=== PATIENT | female | born 1995 | race Caucasian/White ===

== ENCOUNTER 2023-06-10 15:53 | Outpatient (OUT) | payer OTHER, SELFPAY ==
[2023-06-10 16:45] LABS: Free T4 0.98 ng/dL (0.76-1.46)
[2023-06-10 16:53] LABS: Thyroid Stimulating Hormone 0.235 uIU/mL (0.358-3.740)
== END 2023-06-10 15:54 | disposition home or self-care (01) ==
LOC: LAB 15:56
PROVIDERS: PCP Family Medicine; Visit Provider Family Medicine
DX: E89.0 Postprocedural hypothyroidism (principal)
CPT/HCPCS: 36415; 84439; 84443; 84481

== ENCOUNTER 2023-08-25 14:49 | Outpatient (OUT) | payer OTHER, SELFPAY ==
--- OUTSIDE RECORDS SUMMARY | 2023-08-25 14:54 | XMS_ITS | CCD ---
Author Name Unknown Address [address] [place] [address] Organization [facility] Care Team Providers Care Plane Captain Name Role Phone Mehdi Waitered A. Unavailable Unavailable Kabette Bill A. Unavailable Unavailable Bill Waite A. Unavailable Unavailable NONE, XXXX Unavailable Unavailable Drea Garcia Unavailable DR GEREMIAS HERRON Admitting Unavailable GOPAL, DR GEREMIAS Hodges Attending Unavailable GOPAL, DR GEREIMAS Hodges Primary Care Unavailable GOPAL, DR GEREMIAS Hodges Consulting Unavailable GOPAL, DR GEREMIAS Hodges Admitting Unavailable SHITALERECary, DR GEREMIAS Hodges Attending Unavailable GOPAL, DR GEREMIAS Hodges Primary Care Unavailable GOPAL, DR GEREMIAS Hodges Consulting Unavailable MD Geremias Herron Primary Care Provider [phone] MD Erica Santana Attending Provider MD Geremias Herron Primary Care Provider MD Matthias Zelaya Attending Provider MD Geremias Herron Attending Provider [phone] Geremias Herron Primary Care Unavailable Matthias Zelaya Admitting Unavailable Matthias Zelaya Attending Unavailable Geremias Herron Primary Care Unavailable Geremias Herron Attending Unavailable Geremias Herron Admitting Unavailable Geremias Herron Primary Care Unavailable Erica Santana Admitting Unavailable Erica Santana Attending Unavailable Laurie Merlos Unavailable GEREMIAS HERRON Attending Unavailable Medications Current Medications Medication Drug Class(es) Dates Sig (Normalized) Sig (Original) amoxicillin 875 mg / clavulanate 125 mg oral tablet (5 sources) Penicillin-class Antibacterial Start: 09-30-2021 take 1 tablet by mouth every twelve hours Amoxicillin-Pot Clavulanate 875-125 MG 1 tablet Orally every 12 hrs for 7 days Jun, Active Start: 08-30-2020 End: 02-16-2022 take 1 tablet by mouth twice daily Amoxicillin-Pot Clavulanate (Augmentin) 875-125 mg tablet Discontinued 1 TAB PO Twice daily August 30, 2020 1:00am February 16, 2022 9:08am fluticasone propionate 0.05 mg/actuat metered dose nasal spray (3 sources) Corticosteroid Start: 07-08-2023 take 1 spray(s) nasal route once daily Fluticasone Propionate 50 MCG/ACT 1 spray in each nostril Nasally Once a day for 14 Jun, Active Start: 09-30-2021 take 2 spray(s) nasa l route once daily Fluticasone Propionate 50 MCG/ACT 2 sprays Nasally Once a day for 14 day(s) Sep, Not-Taking levothyroxine sodium 0.2 mg oral tablet (4 sources) l-Thyroxine Start: 08-30-2020 take 200 ug by mouth once daily Levothyroxine Active 200 MCG PO Daily August 30, 2020 1:00am take 1 tablet by lyndsey th every twenty-four hours Levothyroxine Sodium 125 MCG 1 capsule Orally Once a day for 90 days Active ondansetron 4 mg disintegrating oral tablet (4 sources) Serotonin-3 Receptor Antagonist Start: 02-16-2022 Ondansetron Active 4 MG PO every 6 to 8 hours February 16, 2022 12:00am Start: 10-03-2019 take 1 tablet by lyndsey th every eight hours as needed Zofran ODT 4 MG 1 tablet on the tongue and allow to dissolve Orally every 8 hrs as needed for 4 days Sep, Not-Taking Completed/Discontinued Medications Medication Drug Class(es) Dates Sig (Normalized) Sig (Original) [id number] 200 actuat albuterol 0.09 mg/actuat metered dose inhaler (2 sources) beta2-Adrenergic Agonist Start: 10-03-2019 take 2 puff(s) by inhalation every four hours as needed Albuterol Sulfate HFA 108 (90 Base) MCG/ACT 2 puffs as needed Inhalation every 4 hrs Sep, Not-Taking Start: 10-03-2019 take 2 puff(s) by in halation every four hours as needed Albuterol Sulfate HFA 108 (90 Base) MCG/ACT 2 puffs as needed Inhalation every 4 hrs Sep, Not-Taking Ciprofloxacin-Hydrocortisone (Cipro Hc) 0.2-1 % drops,suspension (2 sources) Start: 08-30-2020 End: 02-16-2022 Ciprofloxacin-Hydrocortisone (Cipro Hc) 0.2-1 % drops,suspension Discontinued 3 DROPS EAR-LEFT Q12H August 30, 2020 1:00am February 16, 2022 9:08am Start: 08-30-2020 End: 02-16-2022 Ciprofloxacin-Hydrocortisone (Cipro Hc) 0.2-1 % drops,suspension Discontinued 3 DROPS EAR-LEFT Q12H August 30, 2020 12:00am February 16, 2022 8:08am codeine phosphate 2 mg/ml / guaiFENesin 20 mg/ml oral solution (2 sources) Opioid Agonist Start: 10-03-2019 guaiFENesin-Codeine 100-10 MG/5ML 5 ml as needed 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 Sep, Not-Taking oseltamivir 75 mg oral capsule (2 sources) Neuraminidase Inhibitor Start: 10-03-2019 take 1 capsule by mouth every twelve hours Tamiflu 75 MG 1 capsule Orally Twice a day for 5 day(s) Sep, Not-Taking predniSONE 20 mg oral tablet (2 sources) Start: 09-30-2021 take 1 tablet by mouth every twelve hours predniSONE 20 MG 1 tablet Orally bid for 5 day(s) Sep, Not-Taking LEON (2 sources) LEON Not-Taking LEON Active Problems Active Problems Problem Classification Problem Date Documented Da te Episodic/Chronic Complications of surgical procedures or medical care (8 sources) History of subtotal thyroidectomy; Translations: [Postprocedural hypothyroidism] Onset: 06-26-2022 Chronic Nausea and vomiting (2 sources) Nausea and vomiting; Translations: [Nausea with vomiting, unspecified] 02-16-2022 Episodic Neoplasms of unspecified nature or uncertain behavior (1 source) Neoplasm of unspecified behavior of bone, soft tissue, and skin; Translations: [Neoplasm of unspecified behavior of bone, soft tissue, and skin] Onset: 01-19-2023 Episodic Other ear and sense organ disorders (2 sources) Otitis externa; Translations: [Unspecified otitis externa, unspecified ear] 08-30-2020 Chronic Other nutritional; endocrine; and metabolic disorders (2 sources) Body mass index 30+ - obesity; Translations: [Body mass index (BMI) 32.0-32.9, adult] Chronic Other nutritional; endocrine; and metabolic disorders (2 sources) Obesity; Translations: [Obesity, unspecified] Chronic Other upper respiratory infections (2 sources) Sinusitis; Translations: [Chronic sinusitis, unspecified] Chronic Otitis media and related conditions (1 source) Otitis media, unspecified, right ear Episodic Thyroid disorders (2 sources) Subclinical hypothyroidism; Translations: [Hypothyroidism, unspecified] Chronic Unclassified (1 source) Encounter for general adult medical examination without abnormal findings; Translations: [Encounter for general adult medical examination without abnormal findings] Onset: 02-01-2023 Unclassified (1 source) Pain in right knee; Translations: [Pain in right knee] Onset: 10-12-2022 Past or Other Problems Problem Classification Problem Date Documented Da te Episodic/Chronic Immunizations and screening for infectious disease (1 source) Contact with and (suspected) exposure to other viral communicable diseases Onset: 09-30-2021 Resolved: 09-30-2021 Episodic Other upper respiratory infections (1 source) Acute sinusitis, unspecified Onset: 09-30-2021 Resolved: 09-30-2021 Episodic Results Test Name Value Interpretation Reference Range Facility A1C with Estimated Average Shawanda boyd 02-01-2023 Glucose [Mass/Vol] 108 mg/dL Normal [facility] Comment on above: Result Comment: PERF ORMED BY: [place] [address] PATHOLOGIST ARMAMENT INSTALLER BIANCA CIFUENTES M.D. Performed By: #### H EPATIC, BMP, T4F, LIPID, A1C WTH eA, CBC, T3F, TSH3 #### [address] HbA1c (Bld) [Mass fraction] 5.4 % Normal 4.3-5.6 [facility] Comment on above: Result Comment: Incr eased risk for diabetes: 5.7 - 6.4 diabetes: >6.4 glycemic control for adults with diabetes: <7.0 Performed By: #### H EPATIC, BMP, T4F, LIPID, A1C WTH eA, CBC, T3F, TSH3 #### [facility] [address] [place] [address] [place] Alanine aminotransferase [En zymatic activity/volume] in Serum or PlasmaOrdered By: Geremias Herron on 02-01-2023 ALT [Catalytic activity/Vol] 21 U/L 7-52 [facility] Albumin [Mass/volume] in Ser um or Plasma by Bromocresol green (BCG) dye binding methoOrdered By: Geremias Herron on 02-01-2023 Albumin BCG dye [Mass/Vol] 4.1 g/dL 3.5-5.7 [facility] Alkaline phosphatase [Enzyma tic activity/volume] in Serum or PlasmaOrdered By: Geremias Herron on 02-01-2023 ALP [Catalytic activity/Vol] 62 U/L 34-104 [facility] Aspartate aminotransferase [ Enzymatic activity/volume] in Serum or PlasmaOrdered By: Geremias Herron on 02-01-2023 AST [Catalytic activity/Vol] 25 U/L 13-39 [facility] Basic Metabolic Panelon 01-08 Anion gap [Moles/Vol] 10.5 mmol/L Normal 6.0-15.0 [facility] Comment on above: Order Comment: PT NO T FASTING Performed By: #### H EPATIC, BMP, T4F, LIPID, A1C WTH eA, CBC, T3F, TSH3 #### [facility] [address] [place] [address] [place] Calcium [Mass/Vol] 8.8 mg/dL Normal 8.6-10.3 [facility] Comment on above: Order Comment: PT NO T FASTING Performed By: #### H EPATIC, BMP, T4F, LIPID, A1C WTH eA, CBC, T3F, TSH3 #### [facility] [address] [place] [address] [place] Chloride [Moles/Vol] 107 mmol/L Normal 98-107 [facility] Comment on above: Order Comment: PT NO T FASTING Performed By: #### H EPATIC, BMP, T4F, LIPID, A1C WTH eA, CBC, T3F, TSH3 #### [facility] [address] CO2 [Moles/Vol] 27.5 mmol/L Normal 21.0-31.0 [facility] Comment on above: Order Comment: PT NO T FASTING Performed By: #### H EPATIC, BMP, T4F, LIPID, A1C WTH eA, CBC, T3F, TSH3 #### [facility] [address] Creatinine [Mass/Vol] 0.84 mg/dL Normal 0.60-1.20 [facility] Comment on above: Order Comment: PT NO T FASTING Performed By: #### H EPATIC, BMP, T4F, LIPID, A1C WTH eA, CBC, T3F, TSH3 #### [facility] [address] [place] [address] [place] GFR/1.73 sq M.predicted MDRD (S/P/Bld) [Vol rate/Area] mL/min/{1.73_m2} [facility] Comment on above: Order Comment: PT NO T FASTING Performed By: #### H EPATIC, BMP, T4F, LIPID, A1C WTH eA, CBC, T3F, TSH3 #### [facility] [address] Glucose [Mass/Vol] 95 mg/dL Normal 70-100 [facility] Comment on above: Order Comment: PT NO T FASTING Result Comment: [place] Glucose Reference Range is dependent on time and content of last meal. Glucose of more than 200 mg/dL in a nonstressed, ambulatory subject supports the diagnosis of Diabetes Mellitus. ADA recommended reference range Performed By: #### H EPATIC, BMP, T4F, LIPID, A1C WTH eA, CBC, T3F, TSH3 #### [facility] [address] [place] [id number] [facility] Potassium [Moles/Vol] 4.0 mmol/L Normal 3.5-5.1 [facility] Comment on above: Order Comment: PT NO T FASTING Performed By: #### H EPATIC, BMP, T4F, LIPID, A1C WTH eA, CBC, T3F, TSH3 #### [facility] [address] Sodium [Moles/Vol] 141 mmol/L Normal 136-145 [facility] Comment on above: Order Comment: PT NO T FASTING Performed By: #### H EPATIC, BMP, T4F, LIPID, A1C WTH eA, CBC, T3F, TSH3 #### [facility] [address] Urea nitrogen [Mass/Vol] 12 mg/dL Normal 7-25 [facility] Comment on above: Order Comment: PT NO T FASTING Performed By: #### H EPATIC, BMP, T4F, LIPID, A1C WTH eA, CBC, T3F, TSH3 #### [facility] [address] Basophils Auto (Bld) [#/Vol] Ordered By: Geremias Herron on 02-01-2023 Basophils (Bld) [#/Vol] 0.0 10*3/uL 0.0-0.2 [facility] Basophils/100 WBC Auto (Bld) Ordered By: Geremias Herron on 02-01-2023 Basophils/100 WBC (Bld) 0.4 % . [facility] Bilirubin.direct [Mass/volum e] in Serum or PlasmaOrdered By: Geremias Herron on 02-01-2023 Bilirubin.direct [Mass/Vol] 0.10 mg/dL 0.03-0.18 [facility] Bilirubin.total [Mass/volume ] in Serum or PlasmaOrdered By: Geremias Herron on 02-01-2023 Bilirubin [Mass/Vol] 0.4 mg/dL 0.3-1.0 [facility] Calcium [Mass/volume] in Ser um or PlasmaOrdered By: Geermias Herron on 02-01-2023 Calcium [Mass/Vol] 8.8 mg/dL 8.6-10.3 [facility] Carbon dioxide, total [Moles /volume] in Serum or PlasmaOrdered By: Geremias Herron on 02-01-2023 CO2 [Moles/Vol] 27.5 mmol/L 21.0-31.0 [facility] Chloride [Moles/volume] in S anjana or PlasmaOrdered By: Geremias Hreron on 02-01-2023 Chloride [Moles/Vol] 107 mmol/L 98-107 [facility] Cholesterol [Mass/volume] in Serum or PlasmaOrdered By: Geremias Herron on 02-01-2023 Cholesterol [Mass/Vol] 144 mg/dL 140-200 [facility] Comment on above: Chol less than 200 m g/dl low riskChol 201-239 mg/dl borderline riskChol 240 mg/dl and greater high risk Cholesterol in LDL Calc [Mas s/Vol]Ordered By: Geremias Herron on 02-01-2023 Cholesterol in LDL [Mass/Vol] 81 mg/dL 0-100 [facility] Comment on above: LDL ATP III CLASSIFI CATIONLDL less than 100 mg/dL OptimalLDL 100-129 mg/dL Near or above optimalLDL 130-159 mg/dL Borderline highLDL 160-189 mg/dL HighLDL greater than 189 mg/dL Very high Cholesterol in VLDL Calc [Ma ss/Vol]Ordered By: Geremias Herron on 02-01-2023 Cholesterol in VLDL [Mass/Vol] 14 mg/dL [facility] Complete Blood Count Auto Di ffon 02-01-2023 Basophils (Bld) [#/Vol] 0.0 10*3/uL Normal 0.0-0.2 [facility] Comment on above: Result Comment: PERF ORMED BY: [facility] [address] [place] [address] PATHOLOGIST ARMAMENT INSTALLER BIANCA CIFUENTES M.D. Performed By: #### H EPATIC, BMP, T4F, LIPID, A1C WTH eA, CBC, T3F, TSH3 #### [facility] [address] Basophils/100 WBC (Bld) 0.4 % Normal . [facility] Comment on above: Performed By: #### H EPATIC, BMP, T4F, LIPID, A1C WTH eA, CBC, T3F, TSH3 #### [address] Eosinophils (Bld) [#/Vol] 0.2 10*3/uL Normal 0.0-0.45 [facility] Comment on above: Performed By: #### H EPATIC, BMP, T4F, LIPID, A1C WTH eA, CBC, T3F, TSH3 #### [address] Eosinophils/100 WBC (Bld) 2.2 % Normal . [facility] Comment on above: Performed By: #### H EPATIC, BMP, T4F, LIPID, A1C WTH eA, CBC, T3F, TSH3 #### [address] Erythrocyte distribution width (RBC) [Ratio] 13.8 % Normal 11.9-15.3 [facility] Comment on above: Performed By: #### H EPATIC, BMP, T4F, LIPID, A1C WTH eA, CBC, T3F, TSH3 #### [address] Hematocrit (Bld) [Volume fraction] 37.7 % Normal 34.0-46.4 [facility] Comment on above: Performed By: #### H EPATIC, BMP, T4F, LIPID, A1C WTH eA, CBC, T3F, TSH3 #### [address] Hemoglobin (Bld) [Mass/Vol] 12.8 g/dL Normal 11.8-15.4 [facility] Comment on above: Performed By: #### H EPATIC, BMP, T4F, LIPID, A1C WTH eA, CBC, T3F, TSH3 #### [address] Lymphocytes (Bld) [#/Vol] 3.0 10*3/uL Normal 1.00-4.8 [facility] Comment on above: Performed By: #### H EPATIC, BMP, T4F, LIPID, A1C WTH eA, CBC, T3F, TSH3 #### [address] [place] [address] [place] Lymphocytes/100 WBC (Bld) 37.3 % Normal . [facility] Comment on above: Performed By: #### H EPATIC, BMP, T4F, LIPID, A1C WTH eA, CBC, T3F, TSH3 #### [facility] [address] MCH (RBC) [Entitic mass] 27.9 pg Normal 24.7-34.3 [facility] Comment on above: Performed By: #### H EPATIC, BMP, T4F, LIPID, A1C WTH eA, CBC, T3F, TSH3 #### [address] MCV (RBC) [Entitic vol] 82.3 fL Normal 80-100 [facility] Comment on above: Performed By: #### H EPATIC, BMP, T4F, LIPID, A1C WTH eA, CBC, T3F, TSH3 #### [address] Mean Corpuscular HGB Conc 33.9 g/dL Normal 32.0-35.0 [facility] Comment on above: Performed By: #### H EPATIC, BMP, T4F, LIPID, A1C WTH eA, CBC, T3F, TSH3 #### [address] Monocytes (Bld) [#/Vol] 0.8 10*3/uL Normal 0.0-0.8 [facility] Comment on above: Performed By: #### H EPATIC, BMP, T4F, LIPID, A1C WTH eA, CBC, T3F, TSH3 #### [address] Monocytes/100 WBC (Bld) 10.5 % Normal . [facility] Comment on above: Performed By: #### H EPATIC, BMP, T4F, LIPID, A1C WTH eA, CBC, T3F, TSH3 #### [address] Neutrophils (Bld) [#/Vol] 4.0 10*3/uL Normal 1.8-7.7 [facility] Comment on above: Performed By: #### H EPATIC, BMP, T4F, LIPID, A1C WTH eA, CBC, T3F, TSH3 #### [address] Neutrophils/100 WBC (Bld) 49.6 % Normal . [facility] Comment on above: Performed By: #### H EPATIC, BMP, T4F, LIPID, A1C WTH eA, CBC, T3F, TSH3 #### [facility] [address] NRBC% 0.2 /100{WBC} Normal 0-0.5 [facility] Comment on above: Performed By: #### H EPATIC, BMP, T4F, LIPID, A1C WTH eA, CBC, T3F, TSH3 #### [address] Platelet mean volume (Bld) [Entitic vol] 6.4 fL Normal 6.3-10.7 [facility] Comment on above: Performed By: #### H EPATIC, BMP, T4F, LIPID, A1C WTH eA, CBC, T3F, TSH3 #### [place] [address] [place] Platelets (Bld) [#/Vol] 389 10*3/uL Normal 150-450 [facility] Comment on above: Performed By: #### H EPATIC, BMP, T4F, LIPID, A1C WTH eA, CBC, T3F, TSH3 #### [place] [address] [place] RBC (Bld) [#/Vol] 4.58 10*6/uL Normal 3.60-5.00 [facility] Comment on above: Performed By: #### H EPATIC, BMP, T4F, LIPID, A1C WTH eA, CBC, T3F, TSH3 #### [address] WBC (Bld) [#/Vol] 8.1 10*3/uL Normal 3.8-11.6 [facility] Comment on above: Performed By: #### H EPATIC, BMP, T4F, LIPID, A1C WTH eA, CBC, T3F, TSH3 #### [facility] [address] Creatinine [Mass/volume] in Serum or PlasmaOrdered By: Geremias Herron on 02-01-2023 Creatinine [Mass/Vol] 0.84 mg/dL 0.60-1.20 [facility] Eosinophils Auto (Bld) [#/Vo l]Ordered By: Geremias Herron on 02-01-2023 Eosinophils (Bld) [#/Vol] 0.2 10*3/uL 0.0-0.45 [facility] Eosinophils/100 WBC Auto (Bl d)Ordered By: Geremias Herron on 02-01-2023 Eosinophils/100 WBC (Bld) 2.2 % . [facility] Erythrocyte distribution wid th Auto (RBC) [Ratio]Ordered By: Geremias Herron on 02-01-2023 Erythrocyte distribution width (RBC) [Ratio] 13.8 % 11.9-15.3 [facility] Free T4 (Free Thyroxine)on 0 02-01-2023 Free T4 [Mass/Vol] 1.51 ng/dL High 0.61-1.12 [facility] Comment on above: Order Comment: PT NO T FASTING Performed By: #### H EPATIC, BMP, T4F, LIPID, A1C WTH eA, CBC, T3F, TSH3 #### [facility] [address] Globulin Calc (S) [Mass/Vol] Ordered By: Geremias Herron on 02-01-2023 Globulin (S) [Mass/Vol] 1.9 g/dL [facility] Glucose [Mass/volume] in Ser um or PlasmaOrdered By: Geremias Herron on 02-01-2023 Glucose [Mass/Vol] 95 mg/dL 70-100 [facility] Comment on above: ADA recommended refe rence rangeRandom Glucose Reference Range is dependent on time and content of last meal. Glucose of more than 200 mg/dL in a nonstressed, ambulatory subject supports the diagnosis of Diabetes Mellitus. Glucose mean value [Mass/vol ume] in Blood Estimated from glycated hemoglobinOrdered By: Geremias Herron on 02-01-2023 Average glucose Estimated from glycated hemoglobin (Bld) [Mass/Vol] 108 mg/dL [facility] Hematocrit Auto (Bld) [Volum e fraction]Ordered By: Geremias Herron on 02-01-2023 Hematocrit (Bld) [Volume fraction] 37.7 % 34.0-46.4 [facility] Hemoglobin A1c percentageOrd ered By: Geremias Herron on 02-01-2023 HbA1c (Bld) [Mass fraction] 5.4 % 4.3-5.6 [facility] Comment on above: Increased risk for d iabetes: 5.7 - 6.4diabetes: >6.4glycemic control for adults with diabetes: <7.0 Hemoglobin [Mass/volume] in BloodOrdered By: Geremias Herron on 02-01-2023 Hemoglobin (Bld) [Mass/Vol] 12.8 g/dL 11.8-15.4 [facility] Hepatic Panelon 02-01-2023 Albumin [Mass/Vol] 4.1 g/dL Normal 3.5-5.7 [facility] Comment on above: Order Comment: PT NO T FASTING Performed By: #### H EPATIC, BMP, T4F, LIPID, A1C WTH eA, CBC, T3F, TSH3 #### [facility] [address] Albumin/Globulin [Mass ratio] 2.2 {ratio} Normal [facility] Comment on above: Order Comment: PT NO T FASTING Performed By: #### H EPATIC, BMP, T4F, LIPID, A1C WTH eA, CBC, T3F, TSH3 #### [facility] [address] [place] [address] [place] ALP [Catalytic activity/Vol] 62 U/L Normal 34-104 [facility] Comment on above: Order Comment: PT NO T FASTING Performed By: #### H EPATIC, BMP, T4F, LIPID, A1C WTH eA, CBC, T3F, TSH3 #### [facility] [address] [place] [address] [place] ALT [Catalytic activity/Vol] 21 U/L Normal 7-52 [facility] Comment on above: Order Comment: PT NO T FASTING Performed By: #### H EPATIC, BMP, T4F, LIPID, A1C WTH eA, CBC, T3F, TSH3 #### [facility] [address] AST [Catalytic activity/Vol] 25 U/L Normal 13-39 [facility] Comment on above: Order Comment: PT NO T FASTING Performed By: #### H EPATIC, BMP, T4F, LIPID, A1C WTH eA, CBC, T3F, TSH3 #### [facility] [address] [place] [address] Bilirubin [Mass/Vol] 0.4 mg/dL Normal 0.3-1.0 [facility] Comment on above: Order Comment: PT NO T FASTING Performed By: #### H EPATIC, BMP, T4F, LIPID, A1C WTH eA, CBC, T3F, TSH3 #### [facility] [address] [place] [address] Bilirubin,Indirect 0.3 mg/dL Normal [facility] Comment on above: Order Comment: PT NO T FASTING Performed By: #### H EPATIC, BMP, T4F, LIPID, A1C WTH eA, CBC, T3F, TSH3 #### [facility] [address] [place] [address] Bilirubin.indirect [Mass/Vol] 0.10 mg/dL Normal 0.03-0.18 [facility] Comment on above: Order Comment: PT NO T FASTING Performed By: #### H EPATIC, BMP, T4F, LIPID, A1C WTH eA, CBC, T3F, TSH3 #### [facility] [address] [place] [address] Globulin (S) [Mass/Vol] 1.9 g/dL Normal [facility] Comment on above: Order Comment: PT NO T FASTING Performed By: #### H EPATIC, BMP, T4F, LIPID, A1C WTH eA, CBC, T3F, TSH3 #### [facility] [address] [place] [address] [place] Protein [Mass/Vol] 6.0 g/dL Low 6.4-8.9 [facility] Comment on above: Order Comment: PT NO T FASTING Performed By: #### H EPATIC, BMP, T4F, LIPID, A1C WTH eA, CBC, T3F, TSH3 #### [facility] [address] [place] [address] [place] Leukocytes [#/volume] correc sumit for nucleated erythrocytes in Blood by Automated counOrdered By: Geremias Herron on 02-01-2023 WBC corrected for nucl RBC Auto (Bld) [#/Vol] 8.1 10*3/uL 3.8-11.6 [facility] Lipid Panelon 02-01-2023 Cholesterol [Mass/Vol] 144 mg/dL Normal 140-200 [facility] Comment on above: Order Comment: PT NO T FASTING Result Comment: Chol less than 200 mg/dl low risk Chol 201-239 mg/dl borderline risk Chol 240 mg/dl and greater high risk Performed By: #### H EPATIC, BMP, T4F, LIPID, A1C WTH eA, CBC, T3F, TSH3 #### [facility] [address] [place] [id number] [facility] Cholesterol in HDL [Mass/Vol] 49 mg/dL Normal 23-92 [facility] Comment on above: Order Comment: PT NO T FASTING Result Comment: HDL CHOL ATP-III CLASSIFICATION Cardiovascular Risk HDL > or equal to 60 mg/dL LOW HDL < 40 mg/dL HIGH Performed By: #### H EPATIC, BMP, T4F, LIPID, A1C WTH eA, CBC, T3F, TSH3 #### [facility] [address] [place] [address] [place] Cholesterol.total/Chol esterol in HDL [Mass ratio] 2.9 {ratio} Normal <5.0 [facility] Comment on above: Order Comment: PT NO T FASTING Performed By: #### H EPATIC, BMP, T4F, LIPID, A1C WTH eA, CBC, T3F, TSH3 #### [facility] [address] [place] [id number] [place] LDL Cholesterol,Calculated 81 mg/dL Normal 0-100 [facility] Comment on above: Order Comment: PT NO T FASTING Result Comment: LDL ATP III CLASSIFICATION LDL less than 100 mg/dL Optimal LDL 100-129 mg/dL Near or above optimal LDL 130-159 mg/dL Borderline high LDL 160-189 mg/dL High LDL greater than 189 mg/dL Very high Performed By: #### H EPATIC, BMP, T4F, LIPID, A1C WTH eA, CBC, T3F, TSH3 #### [facility] [address] Triglyceride w/Reflex 71 mg/dL Normal 0-149 [facility] Comment on above: Order Comment: PT NO T FASTING Result Comment: TRIG ATP III CLASSIFICATION TRIG less than 150 mg/dL Normal TRIG 150-199 mg/dL Borderline high TRIG 200-500 mg/dL High TRIG greater than 500 mg/dL Very high Standard traceable to the Center for Disease Conrtrol and Prevention (CDC) test method. Performed By: #### H EPATIC, BMP, T4F, LIPID, A1C WTH eA, CBC, T3F, TSH3 #### [facility] [address] VLDL CHOLESTEROL 14 mg/dL Normal [facility] Comment on above: Order Comment: PT NO T FASTING Performed By: #### H EPATIC, BMP, T4F, LIPID, A1C WTH eA, CBC, T3F, TSH3 #### [facility] [address] [id number] [facility] Lymphocytes Auto (Bld) [#/Vo l]Ordered By: Geremias Herron on 02-01-2023 Lymphocytes (Bld) [#/Vol] 3.0 10*3/uL 1.00-4.8 [facility] Lymphocytes/100 WBC Auto (Bl d)Ordered By: Geremias Herron on 02-01-2023 Lymphocytes/100 WBC (Bld) 37.3 % . [facility] MCH Auto (RBC) [Entitic mass ]Ordered By: Geremias Herron on 02-01-2023 MCH (RBC) [Entitic mass] 27.9 pg 24.7-34.3 [facility] MCHC Auto (RBC) [Mass/Vol]Or dered By: Geremias Herron on 02-01-2023 MCHC (RBC) [Mass/Vol] 33.9 g/dL 32.0-35.0 [facility] MCV Auto (RBC) [Entitic vol] Ordered By: Geremias Herron on 02-01-2023 MCV (RBC) [Entitic vol] 82.3 fL 80-100 [facility] Monocytes Auto (Bld) [#/Vol] Ordered By: Geremias Herron on 02-01-2023 Monocytes (Bld) [#/Vol] 0.8 10*3/uL 0.0-0.8 [facility] Monocytes/100 WBC Auto (Bld) Ordered By: Geremias Herron on 02-01-2023 Monocytes/100 WBC (Bld) 10.5 % . [facility] Neutrophils Auto (Bld) [#/Vo l]Ordered By: Geremias Herron on 02-01-2023 Neutrophils (Bld) [#/Vol] 4.0 10*3/uL 1.8-7.7 [facility] Neutrophils/100 WBC Auto (Bl d)Ordered By: Geremias Herron on 02-01-2023 Neutrophils/100 WBC (Bld) 49.6 % . [facility] No Panel InformationOrdered By: Geremias Herron on 02-01-2023 Estimated GFR (CKD-EPI) > 60.0 mL/Min [facility] Creatinine Clearance (Chem N/A [facility] Nucleated erythrocytes [Pres ence] in Blood by Automated countOrdered By: Geremias Herron on 02-01-2023 Nucleated RBC Auto Ql (Bld) 0.2 /100{WBC} 0-0.5 [facility] Platelet mean volume Auto (B ld) [Entitic vol]Ordered By: Geremias Herron on 02-01-2023 Platelet mean volume (Bld) [Entitic vol] 6.4 fL 6.3-10.7 [facility] Platelets Auto (Bld) [#/Vol] Ordered By: Geremias Herron on 02-01-2023 Platelets (Bld) [#/Vol] 389 10*3/uL 150-450 [facility] Potassium [Moles/volume] in Serum or PlasmaOrdered By: Geremias Herron on 02-01-2023 Potassium [Moles/Vol] 4.0 mmol/L 3.5-5.1 [facility] Protein [Mass/volume] in Ser um or PlasmaOrdered By: Geremias Herron on 02-01-2023 Protein [Mass/Vol] 6.0 g/dL 6.4-8.9 [facility] RBC Auto (Bld) [#/Vol]Ordere d By: Geremias Herron on 02-01-2023 RBC (Bld) [#/Vol] 4.58 10*6/uL 3.60-5.00 [facility] Serum or plasma albumin/glob ulin mass ratioOrdered By: Geremias Herron on 02-01-2023 Albumin/Globulin [Mass ratio] 2.2 {ratio} [facility] Serum or plasma anion gap de terminationOrdered By: Geremias Herron on 02-01-2023 Anion gap [Moles/Vol] 10.5 mmol/L 6.0-15.0 [facility] Serum or plasma high density lipoprotein (HDL) cholesterol measurementOrdered By: Geremias Herron on 02-01-2023 Cholesterol in HDL [Mass/Vol] 49 mg/dL 23-92 [facility] Comment on above: HDL CHOL ATP-III CLA SSIFICATION Cardiovascular RiskHDL > or equal to 60 mg/dL LOWHDL < 40 mg/dL HIGH Serum or plasma non-glucuron idated bilirubin measurement (mass/volume)Ordered By: Geremias Herron on 02-01-2023 Bilirubin.indirect [Mass/Vol] 0.3 mg/dL [facility] Serum or plasma total choles terol/high density lipoprotein (HDL) cholesterol mass ratOrdered By: Geremias Herron on 02-01-2023 Cholesterol.total/Chol esterol in HDL [Mass ratio] 2.9 {ratio} <5.0 [facility] Sodium [Moles/volume] in Ser um or PlasmaOrdered By: Geremias Herron on 02-01-2023 Sodium [Moles/Vol] 141 mmol/L 136-145 [facility] Thyroid Stimulating Hormoneo n 02-01-2023 TSH Qn 0.02 m[IU]/L Low 0.45-5.33 [facility] Comment on above: Order Comment: PT NO T FASTING Result Comment: PERF ORMED BY: [facility] [address] [place] [address] PATHOLOGIST ARMAMENT INSTALLER BIANCA CIFUENTES M.D. Performed By: #### H EPATIC, BMP, T4F, LIPID, A1C WTH eA, CBC, T3F, TSH3 #### [facility] [address] [place] [address] [facility] Thyrotropin [Units/volume] i n Serum or PlasmaOrdered By: Geremias Herron on 02-01-2023 TSH Qn 0.02 m[IU]/L 0.45-5.33 [facility] Thyroxine (T4) free [Mass/vo lume] in Serum or PlasmaOrdered By: Geremias Herron on 02-01-2023 Free T4 [Mass/Vol] 1.51 ng/dL 0.61-1.12 [facility] Triglyceride [Mass/volume] i n Serum or PlasmaOrdered By: Geremias Herron on 02-01-2023 Triglyceride [Mass/Vol] 71 mg/dL 0-149 [facility] Comment on above: TRIG ATP III CLASSIF ICATIONTRIG less than 150 mg/dL NormalTRIG 150-199 mg/dL Borderline highTRIG 200-500 mg/dL High TRIG greater than 500 mg/dL Very highStandard traceable to the Center for Disease Conrtrol and Prevention (CDC) test method. Triiodothyronine (T3) Freeon 02-01-2023 Triiodothyronine (T3) Free 3.37 pg/mL Normal 2.50-3.90 [facility] Comment on above: Result Comment: PERF ORMED BY: [facility] [address] [place] [address] PATHOLOGIST ARMAMENT INSTALLER BIANCA CIFUENTES M.D. Performed By: #### H EPATIC, BMP, T4F, LIPID, A1C WTH eA, CBC, T3F, TSH3 #### [facility] [address] [place] [address] [facility] Triiodothyronine (T3) Free [ Mass/volume] in Serum or PlasmaOrdered By: Geremias Herron on 02-01-2023 Free T3 [Mass/Vol] 3.37 pg/mL 2.50-3.90 [facility] Urea nitrogen [Mass/volume] in Serum or PlasmaOrdered By: Geremias Herron on 02-01-2023 Urea nitrogen [Mass/Vol] 12 mg/dL - [facility] WBC Auto (Bld) [#/Vol]Ordere d By: Geremias Herron on 02-01-2023 WBC (Bld) [#/Vol] 8.1 10*3/uL 3.8-11.6 [facility] Eriberto 01-19-2023 L ----- Specimen: [id number] Received: 01/19/23 Status: CHATA Ahndaria Num: [id number] Spec Type: Surgical Subm Dr: Matthias Zelaya MD Tissues: A Soft Tissue/Surgical Margin-Other than Tumor,Mass,Lip or Alka (RT UPPER ARM) Procedures: HE/2, Gross/Micro L4 Age/ Patient Sex Location Account Attending Physician Olivia Burgess 27/F [place] [id number] Matthias Zelaya MD SPEC NUM: [id number] RECD: 01/19/23 STATUS: CHATA LOPEZ NUM: [id number] LISETTE: 01/19/[address] [facility] DR: Matthias Zelaya MD ENTERED: 01/19/[address]: JACOB TYPE: Surgical DEPT: S ORDERED: HE/2, Gross/Micro L4 ORDERED: HE/2, Gross/Micro L4 Pathological Diagnosis A. Right upper arm, soft tissue mass, excision: - Changes most consistent with epidermal inclusion cyst. Clinical Information Mass increasing in size, primary biopsy Gross Description Received in formalin labeled with the patient's name, number and right upper arm is an irregular najera-white ellipse of skin measuring 1 x 0.5 x 0.1 cm with underlying najera-white bosselated lobulated rubbery tissue measuring 1.5 x 0.9 x 0.9 cm. The specimen is inked serially sectioned to reveal najera-white cheesy material. Specimen is entirely submitted in 1 cassette labeled A1. CPT Codes 67336 Specimen: [id number] Received: 01/19/23 Status: CHATA Lopez Num: [id number] Spec Type: Surgical Subm Dr: Matthias Zelaya MD Tissues: A Soft Tissue/Surgical Margin-Other than Tumor,Mass,Lip or Alka (RT UPPER ARM) Procedures: HE/2, Gross/Micro L4 Patient: Olivia Burgess [id number] (Continued) Signed (signature on file) Debra Samayoa MD 01/20/23 1441 Normal [facility] XR knee RT 4V*on 10-12-2022 XR knee RT 4V* [facility] [place] [address] XRay Report Signed Patient: Olivia Burgess MR#: [id number] : 1995 Acct:[id number] Age/Sex: 27 / F ADM Date: 10/12/22 Loc: XD Room: Type: [facility] Attending Dr: Erica Santana MD Copies to: Erica Santana MD Ordering Provider: Erica Santana MD Date of Service: 10/12/22 XR/XR knee RT 4V*: M25.561 ([id number]) XR/XR hand RT min 3V*: M79.641 RIGHT HAND - 3 views right knee 4 views REASON FOR EXAM: Patient fell down some steps 2 weeks ago. Right hand pain. Right anterior knee pain. COMPARISON: None FINDINGS: Right hand: No focal soft tissue abnormality. No acute bony process is seen. Joint spaces appear maintained. Right knee: No acute bony process or significant degenerative change. Joint spaces appear maintained. XR/XR hand RT min 3V* IMPRESSION: NO ACUTE BONY PROCESS. Impression dictated by: Arash Doherty Jr., BelkysOOrion10/12/2022 12:58 PM Dictation Location: [place] [address] Transcribed By: [facility] 10/12/22 1258 Dictated By: Arash Doherty Jr, DO 10/12/22 1256 Signed By: 10/12/22 1258 [facility] FREE T3on 06-26-2022 FREE T3 3.35 pg/mlL Normal 2.18-3.98 [facility] Comment on above: Performed By: #### F T3, TSH #### [facility] [address] [address] [address] Izbaella Weinberg FREE T4on 06-26-2022 Free T4 [Mass/Vol] 1.50 ng/dL Critically high 0.76-1.46 T [facility] Comment on above: Performed By: #### F T4 #### [facility] [address] [address] [address] Izabella Weinberg TSHon 06-26-2022 TSH 0.246 uIU/mL Critically low 0.358-3.[address] [facility] Comment on above: Performed By: #### F T3, TSH #### [facility] [address] [address] [address] Izabella Weinberg FREE T3on 06-02-2022 FREE T3 2.18 pg/mlL Normal 2.18-3.98 [facility] Comment on above: Performed By: #### T SH, FT3 #### [facility] [address] [place], [place] [id number] Dr. Izabella Weinberg FREE T4on 06-02-2022 Free T4 [Mass/Vol] 1.26 ng/dL Normal 0.76-1.46 [facility] Comment on above: Performed By: #### F T4 #### [facility] [address] [place] [address] Dr. Izabella Weinberg TSHon 06-02-2022 TSH 4.546 uIU/mL Critically high 0.358-3.[address] [facility] Comment on above: Performed By: #### T SH, FT3 #### [facility] [address] [place] [address] Dr. Izabella Weinberg COVID Quick Testingon 2021 Result Negative [employer] Other Quick Fluon 09-30-2021 FLUAV Ab CF (S) [Titer] Negative [employer] Other FLUBV Ab CF (S) [Titer] Negative [employer] Other Coding Summary.on 03-18-2017 Coding Summary. CODING DATE: 017 [facility] DSC STATUS: Home (Routine DC) PAYOR: Commercial Insurance APC DESCRIPTION 5312 Level 2 Lower GI Procedures ADMIT DX: REASON FOR VISIT DX: R19.7 Diarrhea, unspecified FINAL DX: PRINCIPAL: R19.7 Diarrhea, unspecified SECONDARY: K64.8 Other hemorrhoids E03.9 Hypothyroidism, unspecified E28.2 Polycystic ovarian syndrome Z79.84 [facility] (current) use of oral hypoglycemic drugs PYMT PROC APC STAT DESCRIPTION DOCTOR NAME DATE 15834 5312 T Colonoscopy, flexible; Bill Waite DO 03/15/2017 with biopsy, single or multiple 54492 Anesthesia for lower Ravindra Bill DELANEY. 03/15/2017 intestinal endoscopic procedures, endoscope introduced distal to duodenum NOTE: The code number assigned matches the documented diagnosis and / or procedure in the patient's chart. However, the narrative phrase printed from the coding software may appear abbreviated, or result in slightly different terminology. Coded By: Edith Chavarria Date Saved: 03/18/2017 07:59 am Normal [facility] IgA, Quant.on 03-17-2017 IgA 175 mg/dL Invalid Interpretation Code 87-964 [facility] Comment on above: Result Comment: Perf ormed at: [facility] [place], [place] [id number] PhD Yanick Smith Performed By: #### 2 [id number], [id number] ####[facility] [address] [place] [address] t-TRANSGLUTAMINASE IgAon Tissue transglutaminase antibody <2 Invalid Interpretation Code 0-3 [facility] Comment on above: Result Comment: Nega tive 0 - 3Weak Positive 4 - 10Positive >10Tissue Transglutaminase (tTG) has been identifiedas the endomysial antigen. Studies have demonstr-ated that endomysial IgA antibodies have over 99%specificity for gluten sensitive enteropathy.Performed at: [facility] [place], [place] [id number] PhD Yanick Smith Performed By: #### 2 [id number], [id number], [id number] ####[facility] [address] [place] [address] Main OR Intraoperative Recor don 03-16-2017 Main OR Intraoperative Record IntraOp Document Type FT Summary Primary Physician: Bill Waite DO Finalized Date/Time: 03/16/17 07:16:04 Pt. Name: OLIVIA BURGESS/Sex: 1995 Female Med Rec #: [id number] Physician: Bill Waite DO Financial #: [id number] Pt. Type: O Room/Bed: / Admit/Disch: 03/15/17 13:50:41 - 03/15/17 23:59:59 Institution: Case Times FT Entry 1 Patient Times In Room 03/15/17 15:01:00 Out Room 03/15/17 15:19:00 Procedure Times Start 03/15/17 15:06:00 Stop 03/15/17 15:16:00 Anesthesia Times Start 03/15/17 15:01:00 Stop 03/15/17 15:19:00 Time at [facility] 03/15/17 15:10:00 Last Modified By: Dania Curtis CST 03/15/17 15:17:31 General Comments: 03/16/2017 Chart opened to review and send charges Matthew hide shaker Case Attendance FT Entry 1 Entry 2 Entry 3 Case Attendee Liliana Shirley RN, Daniella Gamez LPN, BASKETBALL COMMENTATOR, Tracy Rivera Role Performed Anesthesiologist Roof Bolting Coal Miner - Primary Scrub - Other Top And Seat Cover Fitter Time In 03/15/17 15:01:00 03/15/17 15:01:00 03/15/17 15:01:00 Time Out 03/15/17 15:19:00 03/15/17 15:19:00 03/15/17 15:19:00 Procedure COLONOSCOPY(.) COLONOSCOPY(.) COLONOSCOPY(.) Comments With Dr. Saxena Last Modified By: Viktoria RN, Daniella Blum RN, Daniella Blum RN, Daniella 03/15/17 15:17:34 03/15/17 15:17:34 03/15/17 15:17:34 Entry 4 Entry 5 Case Attendee Darya ZIEGLER, Bill Mckinley DO Role Performed Scrub - Primary Surgeon - Primary Time In 03/15/17 15:01:00 03/15/17 15:01:00 Time Out 03/15/17 15:19:00 03/15/17 15:19:00 Procedure COLONOSCOPY(.) COLONOSCOPY(.) Comments Last Modified By: Viktoria RN, Daniella Blum RN, Daniella 03/15/17 15:17:34 03/15/17 15:17:34 Perioperative Protocols FT Pre-Care Text: Implements protective measures prior to operative or invasive procedure, confirms identity before the operative or invasive procedure, verifies operative procedure, surgical site, and laterality Entry 1 Procedure(s) COLONOSCOPY(.) Patient Identity Birthday, ID Band Verified (select at Check, Patient least 2): Participation Consents / H and P Anesthesia Consent, Operative Site N/A Verified HandP, Surgery/Procedure Marking Verified Consent Surgical Site No Laterality Verified n/a Verified Procedure Verified Yes Correct Patient Yes Position Verified Availability Equipment, Medication Prep Dry n/a Verified (If Applicable) PreOp Antibiotic No Time Out Liliana Shirley, Given Participants Daniella Blum RN, Kafity DO, Alfred A., [facility], Hetal M Time Out Complete 03/15/17 15:04:00 Outcomes Met? Yes Last Modified By: Daniella Blum RN 03/15/17 15:04:47 Post-Care Text: The patient is free from signs and symptoms of injury caused by extraneous objects Allergy Information FT Pre-Care Text: Verifies allergies Entry 1 Allergies Reviewed? Yes Allergies Reviewed Self/Patient With Outcomes Met? Yes Last Modified By: Daniella Blum RN 03/15/17 10:03:24 Post-Care Text: The patient received appropriate medication(s) safely administered during the perioperative period Surgical Procedures FT Entry 1 Procedure Description Procedure COLONOSCOPY Modifiers . Surgeon Description Colonoscopy with ascending colon and rectal biopsy. Primary Procedure Yes Primary Surgeon Bill Waite DO Start 03/15/17 15:06:00 Stop 03/15/17 15:16:00 Anesthesia Type General Surgical Service Gastroenterology Wound Class 2 - Clean-Contaminated Outcomes Met? Yes Last Modified By: Daniella Blum RN 03/15/17 15:17:22 General Case Data FT Pre-Care Text: Classifies surgical wound, implements aseptic technique, initiates traffic control Entry 1 Case Information OR ENDO 1 FT Case Level Level 2 Wound Class 2 - Clean-Contaminated Specialty Gastroenterology ASA Class 2 Preop Diagnosis COLITIS Postop Same As Preop No Postop Diagnosis Internal hemorrhoids Outcomes Met? Yes Last Modified By: Daniella Blum RN 03/15/17 15:16:17 Post-Care Text: The patient is free from signs and symptoms of infection Skin Assessment (Pre Procedure) FT Pre-Care Text: Implements protective measures to prevent skin/ tissue injury due to thermal or mechanical sources Evaluates for signs and symptoms of physical injury to skin and tissue Entry 1 Skin Integrity Dry, Warm Skin Abnormality No Outcomes Met? Yes Last Modified By: Daniella Blum RN 03/15/17 10:04:07 Post-Care Text: The patient is free from signs and symptoms of injury caused by extraneous objects Patient Positioning FT Pre-Care Text: Identifies physical alterations that require additional precautions for procedure-specific positioning, verifies presence of prosthetics or corrective devices, positions the patient, evaluates the patient for signs and symptoms of injury as a result of positioning Entry 1 Procedure COLONOSCOPY(.) Body Position Lateral, right side up Feet Uncrossed? Yes Left Arm Position Resting at Side Right Arm Position Resting at Side Left Leg Position Extended Right Leg Position Extended Positioning Device Pillow Under Head Large, Safety Strap Press Points Checked Yes By Daniella Blum RN, Moses CAA, Nicole M Outcomes Met? Yes Last Modified By: Daniella Blum RN 03/15/17 10:04:18 Post-Care Text: The patient is free from signs and symptoms of injury related to positioning Patient Care Devices FT Pre-Care Text: Implements protective measures to prevent skin/ tissue injury due to thermal or mechanical sources Entry 1 Entry 2 Equipment Type ENDOSCOPY VIDEO MONITOR CHARGE SURGERY SYSTEM[F] [F] Equipment Number [id number] E1 Equipment Setting Outcomes Met? Yes Yes Last Modified By: Daniella Blum RN, RN, Renee 03/15/17 10:04:29 03/15/17 10:04:41 Post-Care Text: The patient is free from signs and symptoms of injury caused by extraneous objects Transport To OR FT Pre-Care Text: Transports according to individual needs. Evaluates for signs and symptoms of skin and tissue injury as a result of transfer or transport Entry 1 Via Cart By Daniella Blum RN Safety Precautions Safety Strap, Side Outcomes Met? Yes Rails Up Last Modified By: Daniella Blum RN 03/15/17 10:04:34 Post-Care Text: The patient is free from signs and symptoms of injury related to transfer/transport Departure From OR FT Pre-Care Text: Transports according to individual needs. Evaluates for signs and symptoms of skin and tissue injury as a result of transfer or transport. Entry 1 Via Cart Safety Precautions Safety Strap, Side Rails Up PostOp Destination PACU Transported By Daniella Blum RN Patient Status Stable Skin. Condition Intact, [place], Warm, and Dry Airway Maintenance Oxygen in Use? No Outcomes Met? Yes Last Modified By: Daniella Blum RN 03/15/17 10:05:00 Post-Care Text: The patient is free from signs and symptoms of injury related to transfer/transport General Comments: Report given to global marketing specialist. RHRN Medication Administration FT Pre-Care Text: Verifies allergies, administers prescribed medications and solutions, administers prescribed antibiotic therapy and immunizing agents as ordered, evaluates response to medications Administers prescribed medications and solutions Entry 1 Expiration Date Yes Outcomes Met? Yes Verified Last Modified By: Daniella Blum RN 03/15/17 10:05:09 Post-Care Text: The patient received appropriate medication(s) safely administered during the perioperative period For Brandi please see scanned medication reconcilliation form for medications used at the field during the procedure. Cultures and Specimens FT Pre-Care Text: Manages specimen handling and disposition Manages culture specimen collection Entry 1 Cultures Ordered n/a Specimens Ordered Yes Specimen Disposition Designated OR Area Frozen Section Times Outcomes Met? Yes Last Modified By: Daniella Blum RN 03/15/17 15:16:26 Post-Care Text: The patient is free from signs and symptoms of injury caused by extraneous objects The patient is free from signs and symptoms of infection Case Comments Finalized By: Dania Curtis CST Document Signatures Signed By: Daniella Blum RN 03/15/17 15:19 Dania Curtis CST 03/16/17 07:16 Normal [facility] CRPon 03-15-2017 C reactive protein (CRP) 1.1 mg/dL Normal <=1.9 [facility] Comment on above: Performed By: #### 2 [id number], [id number], [id number] ####[facility] [address] [place] [address] History and Physicalon 03-15 History and Physical Date: 03/03/2017 8:4 5 AMPatient Name: Olivia De Los Santos #: [id number]: FemaleDOB (age): 1995 (21)Provider: Mirela Shepherd Complaint: DiarrheaHistory of Present Illness:This is a 21-year-old white female with a past medical history that is remarkable for hypothyroidism as well as polycysticovarian disease. She is on metformin because of her polycystic disease. She is also on levothyroxin 125 ?g daily. She comesto the office the on her own complaining of diarrhea that started about a month ago. She goes maybe 3 or 4 times a day butshe denies any fever, chills or any weight loss. She has not been treated with any antibiotics recently. She had been takingmetformin for many years. She denies any family history of inflammatory bowel disease or celiac disease but she doescomplain of quite a bit of bloating. She denies any nausea, vomiting, heartburn, dysphagia, melena, hematemesis,hematochezia, constipation, rectal bleeding, or the ingestion of any nonsteroidals regular basis.Past Medical HistoryMedical Conditions: Hypothyroidismpolycystic ovarian syndromeSurgical Procedures: ThyroidectomyTonsillectom yMedications: levothyroxine 125 mcg QDmetformin 500 mg QDYAZ (28) 3-0.02 mg as directedAllergies: Patient has no known allergies or drug allergiesSocial HistoryAlcohol: rarely.Tobacco: Never smokerDrugs: NoneExercise: 4 days a week.Caffeine: coffee 2 days a week.Marital Status: SingleFamily History No history of Colon Cancer, Colon PolypsMother: Healthy;Father: Healthy;Review of Systems:Allergic/Immunolo gic: Denies strong allergic reactions or urticaria, HIV exposure, Immune Deficiency, persistentinfections.Card iovascular: Denies chest pain, dyspnea with exercise, irregular heart beat, orthopnea, palpitations,peripheral edema, syncope.Constitutional: Complains of fatigue, weight gain, exhaustion. Denies fever, loss of appetite, malaise,sweats, Arthritis, weight loss, chills.ENMT: Denies difficulty swallowing, dizziness, ear pain, nasal obstruction, nose bleeds, sore throat, eardischarge, frequent infections, hearing loss, high pitched ringing, hoarseness, nasal discharge.Endocrine: Complains of hair loss. Denies cold intolerance, excessive eating, excessive thirst, excessiveurination, heat intolerance.Eyes: Denies double vision, loss of vision, photophobia, blurred vision, pain, wearing glasses/contacts.Printed on 03/12/2017 Olivia Burgess, [id number], 1995Gastrointestinal : Complains of abdominal pain, belching, bloating, constipation, diarrhea, gas, stoolincontinence, stomach cramps. Denies abdominal swelling, change in bowel habits,heartburn, jaundice, nausea, rectal bleeding, vomiting.Genitourinary: Denies dark urine, decrease in urine flow, dysuria, frequent urinary infections, frequenturination, hematuria, nocturia, urethral discharge or incontinence, sexual difficulty, sexualtransmitted diseases, kidney disease, kidney stones, pain with urination.Hematologic/Lym phatic: Denies bleeding gums or palpable lymph nodes, easy bruising, prolonged bleeding, swollenglands.Integumenta ry: Denies allergies, dryness, hives, itching, jaundice, lesions, rashes.Musculoskeletal: Denies arthritis, back pain, gout, joint deformity, joint pain, muscle weakness, stiffness, jointswelling, muscle pain.Neurological: Denies dizziness, fainting, frequent headaches, migraine, numbness or tingling, seizures,tremors, vertigo, memory disturbance.Psychiatric: Complains of nervousness. Denies anxiety, depression, difficulty sleeping, hallucinations, panicattacks, paranoia, abnormal stress, inability to concentrate, suicidal ideation.Respiratory: Denies asthma, cough, dyspnea, excessive sputum, hemoptisis, shortness of breath withexercise, wheezing, coughing up blood.Vital Signs:BP(mmHg)Pulse(ppm)R hythm Weight (lbs/oz) Height (ft/in) BMI Resp/min Vyty587/86 86 Regular 241 / 33.61 12 98.2 (F)Physical Exam:Constitutional:Appea jameson: well developed, well nourished, normal habitus, no deformities, in no acute distress..Skin:Inspection : no rashes, ulcers, icterus or other lesions; no clubbing or telangiectasias..Palpatio n: no induration or subcutaneos nodules..Eyes:Conjunctiva e/lids: normal conjunctivae and lids..Pupils/irises: symmetrical, normoreactive to light, normal accommodation and size..ENMT:Hearing: within normal limits.Lips/teeth/gums: normal oral mucosa,lips and gums; good dentition.Neck:Neck: normal motion, central trachea.Respiratory:Percu ssion: thorax normoresonant.Auscultatio n: normal breath sounds; no rubs, wheezes, rale or ronchi.Cardiovascular:Aus cultation: normal rhythm, S1 and S2; no rubs, murmurs or gallop.Peripheral: no edema, varicocities or cyanosis..Gastrointestina l/Abdomen:Abdomen: Mild generalized nonspecific tenderness, no rebound.Liver/Spleen: normal size and consistency, not palpable.Hernias: no hernias appreciated.Rectal: Deferred to colonoscopy.Musculoskelet al:Gait/station: normal gait and station.Digits/nails: no clubbing, cyanosis, petechiae or other inflammatory conditions.Psychiatric:Ju dgment/insight: within normal limits.Orientation: oriented to time, space and person.Memory: within normal limits for recent and remote events.Mood and affect: no evidence of depression, anxiety or agitation.Impressions:Col itis nonspecific differential diagnosis includes celiac disease versus inflammatory boweldisease versus irritable bowel syndrome versus medication induced. Patient reports that thephysician who gave her the Synthroid recently ordered her thyroid function tests and she issupposed to see him next weekPrinted on 03/12/2017 Olivia Burgess, [id number], 1995HypothyroidismPo lycystic ovariesPlan: *Dietary Management GuidanceColonoscopy will be performed at [facility] .To be drawn at time of procedureLabs Ordered: Total serum IgALabs Ordered: T-transglutaminaseLabs Ordered: CRPRisk & Medical Necessity: Diagnosis and management options are Extensive. The amount of data reviewedand/or ordered is Limited. The level of risk is Moderate.Bill Waite DO Olivia Burgess, [id number], 1995Printed on 03/12/2017 Olivia Burgess, [id number], 1995No change in the H&P. Normal [facility] Comment on above: Result Comment: Elec tronically Signed By: Bill Waite DO\.br\Date and Time Signed: 03/15/17 15:02 EDT Inpatient Patient Summaryon 03-15-2017 In[facility] InstructionsPERSON INFORMATION Name: OLIVIA BURGESS PHYSICIANS Admitting Physician: Bill Waite DOAttending Physician: Bill Waite DO PCP: NONE, XXXXDischarge Diagnosis: Comment: PATIENT EDUCATION INFORMATIONInstructions:C olonoscopy, Care AfterMedication Leaflets:Follow up:With: Address: When: Bill Waite [address] [place] [address] [facility] (1) 03/29/17 07:45:00 Comments: Keep scheduled appointment MEDICATION LISTComment: Normal [facility] Main OR PACU I Recordon Main OR PACU I Record PACU Phase I Docum ent Type FT Summary Primary Physician: Bill Waite DO Finalized Date/Time: 03/15/17 16:11:59 Pt. Name: BURGESSOLIVIA/Sex: 1995 Female Med Rec #: [id number] Physician: Bill Waite DO Financial #: [id number] Pt. Type: O Room/Bed: / Admit/Disch: 03/15/17 13:50:41 - Institution: Case Times PACU I FT Pre-Care Text: Identifies barriers to communication and implements measures to provide psychological support Develops individualized plan of care, and ensures continuity of care Maintains patient's dignity and privacy, and maintains patient confidentiality Identifies and reports philosophical, cultural, and spiritual beliefs and values Identifies individual values and wishes concerning care Implements aseptic technique, and administers prescribed antibiotic therapy and immunizing agents as ordered Evaluates postoperative tissue perfusion Implements thermoregulation measures, and monitors body temperature Evaluates postoperative respiratory status Evaluates postoperative cardiac status Evaluates postoperative neurological status Assesses pain control, collaborated in initiating patient-controlled analgesia and implements alternative methods of pain control Verifies allergies, administers prescribed medications and solutions, evaluates response to medications Entry 1 In PACU I 03/15/17 15:20:00 Discharge from PACU 03/15/17 15:50:00 I Outcomes Met? Yes Last Modified By: Sushila STEWARD, Edie 03/15/17 16:11:46 Post-Care Text: The patient demonstrates knowledge of the expected response to the operative or invasive procedure The patient's care is consistent with the individualized perioperative plan of care The patient's right to privacy is maintained The patient's value system, lifestyle, ethnicity, and culture are considered, respected, and incorporated into the perioperative plan of care The patient participates in decisions affecting his or her perioperative plan of care The patient is free from signs and symptoms of infection The patient has wound/tissue perfusion consistent with or improved from baseline levels established preoperatively The patient is at or returning to normothermia at the conclusion of the immediate postoperative period The patient's respiratory function is consistent with or improved from baseline levels established preoperatively The patient's cardiovascular status is consistent with or improved from baseline levels established preoperatively The patient's cardiovascular status is consistent with or improved from baseline levels established preoperatively The patient demonstrates and/or reports adequate pain control throughout the perioperative period The patient received appropriate medication(s), safely administered during the perioperative period Acuity Level PACU I FT Entry 1 Start Time 03/15/17 15:20:00 Stop Time 03/15/17 15:50:00 Acuity Level Acuity Level I Last Modified By: Edie Conti RN 03/15/17 16:11:57 Finalized By: Edie Conti RN Document Signatures Signed By: Edie Conti RN 03/15/17 16:11 Normal [facility] Main OR Preoperative Recordo n 03-15-2017 Main OR Preoperative Record Holding Area Document Type FT Summary Primary Physician: Bill Waite DO Finalized Date/Time: 03/15/17 14:09:49 Pt. Name: OLIVIA BURGESS/Sex: 1995 Female Med Rec #: [id number] Physician: Bill Waite DO Financial #: [id number] Pt. Type: O Room/Bed: / Admit/Disch: 03/15/17 13:50:41 - Institution: Case Times Holding FT Pre-Care Text: Verifies consent for planned procedure, identifies individual values and wishes concerning care, includes family members in perioperative teaching Secures patient's records' belongings, and valuables, maintains patient's dignity and privacy, and maintains patient confidentiality Entry 1 In Holding 03/15/17 14:06:00 Outcomes Met? Yes Last Modified By: Barbara Murray RN 03/15/17 14:07:21 Post-Care Text: The patient participates in decisions affecting his or her perioperative plan of care The patient's right to privacy is maintained Surgery Checklist FT Entry 1 Patient Birthday, ID Band Procedure History and Physical, Identification: Check, Patient Verification: Surgical Consent, With Participation Patient NPO after Midnight: Yes Personal Items none Comment: Limitations: Pt states on mense Complaints of Pain: No Operative Site n/a Marking: Does Patient Smoke Yes Patient states Yes Comment - Adult Grandma postop adult Supervision supervision available Case Cancelled in No Holding Area see comments below for reason Last Modified By: Barbara Murray RN 03/15/17 14:08:56 General Comments: Pt completed prep at 1055 remained NPO since/ISMAELRN Finalized By: Barbara Murray RN Document Signatures Signed By: Barbara Murray RN 03/15/17 14:09 Normal [facility] Patient Education - Texton 0 03-15-2017 Patient Education - Text Patient Education Materials Follows:MedicineColonosco py, Care AfterRefer to this sheet in the next few weeks. These instructions provide you with information on caring for yourself after your procedure. Your health care provider may also give you more specific instructions. Your treatment has been planned according to current medical practices, but problems sometimes occur. Call your health care provider if you have any problems or questions after your procedure.WHAT TO EXPECT AFTER THE PROCEDUREAfter your procedure, it is typical to have the following:? A small amount of blood in your stool.? Moderate amounts of gas and mild abdominal cramping or bloating. HOME CARE INSTRUCTIONS? Do not drive, operate machinery, or sign important documents as directed by your physician.? You may shower and resume your regular physical activities, but move at a slower pace for the first 24 hours.? Take frequent rest periods for the first 24 hours.? Walk around or put a warm pack on your abdomen to help reduce abdominal cramping and bloating.? Drink enough fluids to keep your urine clear or pale yellow. ? You may resume your normal diet as instructed by your health care provider. Avoid heavy or fried foods that are hard to digest.? Avoid drinking alcohol for 24 hours or as instructed by your health care provider. ? Only take [id number] or prescription medicines as directed by your health care provider. ? If a tissue sample (biopsy) was taken during your procedure:? Do not take aspirin or blood thinners for 7 days, or as instructed by your health care provider. ? Do not drink alcohol for 7 days, or as instructed by your health care provider. ? Eat soft foods for the first 24 hours.SEEK MEDICAL CARE IF:You have persistent spotting of blood in your stool 2?3 days after the procedure.SEEK IMMEDIATE MEDICAL CARE IF:? You have more than a small spotting of blood in your stool.? You pass large blood clots in your stool. ? Your abdomen is swollen (distended).? You have nausea or vomiting.? You have a fever.? You have increasing abdominal pain that is not relieved with medicine.Document Released: 03/09/2005 Document Revised: 05/16/2014 Document Reviewed: 04/02/2014ExitCare? Patient Information ?2014 [employer]. This information is not intended to replace advice given to you by your health care provider. Make sure you discuss any questions you have with your health care provider. [facility] Progress Note-Physicianon Progress Note-Physician Patient: OLIVIA BURGESS Age: 21 years Sex: Female : 1995 Associated Diagnoses: None Author: Reinier Saxena Jr., DO Postoperative Information Post Operative Note: Post Anesthesia Care Unit. Anesthetic utilized: General. Health Status Allergies: Allergic Reactions (Selected)No Known Allergies Problem list: No problem items selected or recorded. Physical Examination Vital Signs 03/15/2017 15:48 EDT Heart Rate Monitored 66 bpm Respiratory Rate Monitored 11 br/min SpO2 100 % 03/15/2017 15:45 EDT Heart Rate Monitored 79 bpm Respiratory Rate Monitored 11 br/min Systolic Blood Pressure 112 mmHg Diastolic Blood Pressure 73 mmHg Blood Pressure Location Right arm SpO2 99 % 03/15/2017 15:35 EDT Heart Rate Monitored 70 bpm Respiratory Rate Monitored 10 br/min Systolic Blood Pressure 119 mmHg Diastolic Blood Pressure 62 mmHg Blood Pressure Location Right arm SpO2 98 % 03/15/2017 15:30 EDT Heart Rate Monitored 73 bpm Respiratory Rate Monitored 17 br/min Systolic Blood Pressure 111 mmHg Diastolic Blood Pressure 75 mmHg Blood Pressure Location Right arm SpO2 98 % 03/15/2017 15:25 EDT Heart Rate Monitored 84 bpm Respiratory Rate Monitored 19 br/min Blood Pressure Location Right arm SpO2 97 % 03/15/2017 15:20 EDT Temperature Temporal Artery 36.2 DegC LOW Heart Rate Monitored 75 bpm Respiratory Rate Monitored 23 br/min Systolic Blood Pressure 100 mmHg Diastolic Blood Pressure 51 mmHg LOW Blood Pressure Location Right arm SpO2 97 % Pain assessment: Controlled. General: Alert and oriented, No acute distress, No nausea. Adequate hydration.. Respiratory: Adequate air exchange.. Cardiovascular: stable. Neurologic: Normal sensory. Review / Management Condition: Stable. Assessment Anesthetic outcome No anesthetic complications noted. Plan Transfer/ Discharge: Condition stable. Normal [facility] Comment on above: Result Comment: Elec tronically Signed By: Reinier Saxena Jr., DO.br\Date and Time Signed: 03/15/17 16:32 EDT Vital Signs Date Time Vital Sign Value Performing Clinician Facility 07-08-2023 09:10-0500 Body height 180.34 cm Laurie Gaurang Other [facility] Other 07-08-2023 09:10-0500 Body mass index (BMI) [Ratio] 35.06 kg/m2 Laurie Gaurang Other [facility] Other 07-08-2023 09:10-0500 Body temperature 99.1 [degF] Laurie Gaurang Other [facility] Other 07-08-2023 09:10-0500 Body weight 114.04 kg Laurie Gaurang Other [facility] Other 07-08-2023 09:10-0500 Respiratory rate 18 /min Laurie Gaurang Other [facility] Other 07-08-2023 09:10-0500 SaO2% (BldA) [Mass fraction] 98 % Laurie Gaurang Other [facility] Other 09-30-2021 13:45-0500 Body height 180.34 cm Drea Garcia Other [facility] Other 09-30-2021 13:45-0500 Body mass index (BMI) [Ratio] 36.26 kg/m2 Drea Gacria Other [facility] Other 09-30-2021 13:45-0500 Body temperature 97.3 [degF] Drea Garcia Other [facility] Other 09-30-2021 13:45-0500 Body weight 117.94 kg Drea Garcia Other [facility] Other 09-30-2021 13:45-0500 Respiratory rate 18 /min Drea Garcia Other [facility] Other 09-30-2021 13:45-0500 SaO2% (BldA) [Mass fraction] 97 % Drea Garcia Other [facility] Other Encounters Encounter Date Encounter Type Care Provider Facility Start: 08-10-2023 End: 08-10-2023 ambulatory GEREMIAS HERRON Not Available Start: 07-08-2023 End: 07-08-2023 ambulatory Laurie Merlos Other [facility] Other Start: 07-08-2023 Office outpatient vi sit 15 minutes Laurieaddis Merlos [facility] Start: 02-01-2023 End: 02-01-2023 ambulatory Geremias Herron Facility:[facility] Start: 02-01-2023 End: 02-01-2023 ambulatory MD Geremias Herron Work Phone: [facility] Work Phone: Start: 02-01-2023 End: 02-01-2023 Patient encounter procedure MD Geremias Herron Work Phone: [facility] [place] Work Phone: Start: 01-19-2023 End: 01-19-2023 ambulatory Geremias Herron Facility:[facility] Start: 01-19-2023 End: 01-19-2023 Departed Referred MD Geremias Herron Work Phone: [facility] [place] Work Phone: Start: 10-12-2022 End: 10-12-2022 ambulatory Geremias Herron Facility:[facility] Start: 10-12-2022 End: 10-12-2022 ambulatory MD Geremias Herron Work Phone: [facility] Work Phone: Start: 10-12-2022 End: 10-12-2022 Patient encounter procedure MD Geremias Herron Work Phone: [facility] [place] Work Phone: Start: 06-26-2022 End: 06-27-[address] GEREMIAS HERRON Facility:[facility] Start: 06-02-2022 End: 06-03-[address] GEREMIAS HERRON Facility:[facility] Start: 09-30-2021 End: 09-30-2021 ambulatory Drea Garcia Other [facility] Other Start: 09-30-2021 Office outpatient vi sit 15 minutes Drea Garcia [facility] Start: 03-15-2017 End: 03-16-2017 Ambulatory Bill Waite Facility:[facility] Procedures Date Procedure Procedure Detail Performing Clinician Start: 10-12-2022 Plain X-ray of right hand MD Geremias Herron Work Phone: Start: 10-12-2022 X-ray of right knee MD Geremias Herron Work Phone: Payers Date Payer Category Payer Self-pay [id number] 2022 Unknown [id number] 2022 Unknown [id number] 2017 Private Health Insurance 1995 Unknown [id number] 1995 Unknown [id number] 1959 Unknown [id number] Private Health Insurance [facility] [id number] Private Health Insurance [facility] [id number] Unknown Regular Insurance [id number] Unknown [id number] Unknown [id number] Unknown [id number] Social History Date Type Detail Facility Unknown if ever smoked [facility] Other Sex Assigned At Sex Assigned At Bir th [employer] [facility] Other Start: 02-16-2022 End: 02-16-2022 Tobacco smoking status MTIS Never smoked tobacco (finding) [facility] Start: 1995 Sex Assigned At Female [facility] Evaluation note 07-08-2023 Note Date & Type Note Facility 07-08-2023 Evaluation note Encounter Date Diagnosis Assessment Notes Jun, Sinusitis, unspecified chronicity, unspecified location (ICD-10 - J32.9) You were seen here today for your sinus congestion, headache, ear ache. You are being diagnosed with sinusitis and a right ear infection. You are being prescribed flonase nasal spray fo help reduce the sinus inflammation. You are being presribed an antibiotic fo ryour right ear infection. Take all of the antibiotic until it is complete. Drink plenty of fluids. You may jacque etylenol and motrin as needed for fever/discomf ort. Follow up with your primary care provider. Patient is a 27 yo female who presents with sinus pressure/pain on the right side of face, nasal congestion, postnasal drip, headache, right ear pressure since 06/23. States she has tried dayquil, nyquil otc without any relief. DDX includes sinusitis, otitis media, viral URI. Patient exam indicates right otitis media and sinusitis. She is being prescribed flonase fo rhte sinus congestion and inflammation and augmentin fo rthe ear infection. he is being diascharged home to follow up with PCP. Jun, Acute right otitis media (ICD-10 - H66.91) [facility] Other Evaluation note 09-30-2021 Note Date & Type Note Facility 09-30-2021 Evaluation note Encounter Date Diagnosis Assessment Notes Sep, Contact with and (suspected) exposure to other viral communicable diseases (ICD-10 - Z20.828) Sep, Acute sinusitis, recurrence not specified, unspecified location (ICD-10 - J01.90) Drink plenty fluids, get plenty of rest. Take the amoxicillin with clavulanate and the prednisone as prescribed until gone. Use the Flonase inhaler as prescribed until your symptoms improve. Take Tylenol or Motrin for aches pains or fevers. Follow-up with your family physician if no improvement in 2 to 3 days Sep, Other Additional time spent conducting pre-visit phone call, screening for symptoms, instructions on social distancing, application and removal of PPE, and cleaning of examination room, equipment and supplies was preformed. Patient education given for testing methodology and results. Patient care instructions given in writting by [facility] Home document. [employer] Other Evaluation note Note Date & Type Note Facility Evaluation note No assessment information availa [facility] Work Phone: History general Narrative - Reported Note Date & Type Note Facility History general Narrative - Reported Type Medical History polycystic ovaries Medical History HYPOTHYROID Medical History THYROID TUMOR Medical History LIPOMA Surgical History tonsillectomy Surgical History wisdom teeth extract Surgical History right thyroidectomy 10/23 Hospitalization History tonsillectomy Hospitalization History SEE ABOVE LIST [employer] [facility] Other Summary Purpose Family History No Family History Records FoundNo Family History Records FoundNo Family History Records FoundNo Family History Records Found Advance Directives No Advanced Directives Records Found Advance Directive Response Recorded Date/ Time Advance Directives No April 7:12am Advance Directive Response Recorded Date/ Time Advance Directives No April 8:12am Chief Complaint and Reason for Visit Chief Complaint M25.561 M79.641 Chief Complaint mass increasing in s ize z00.00 Additional Source Comments INFORMATION SOURCE (unrecogn ized section and content) DATE CREATED AUTHOR 02/02/2018 [facility] DATE CREATED AUTHOR AUTHOR'S ORGANIZ ATION 07/01/2022 [facility] DATE CREATED AUTHOR AUTHOR'S ORGANIZ ATION 03/25/2023 [facility] DATE CREATED AUTHOR AUTHOR'S ORGANIZ ATION 08/11/2023 [facility] EPIC REASON FOR VISIT (unrecogniz ed section and content) SINUS CONGESTION, H/A, SORE THROAT, SINCE Seplosin voice, right side of face in pain, nose stuffy, sinus, headaches Care Teams (unrecognized sec tion and content) Team Status: Inactive Member Role Status Dates Geremias Herron MD Primary Care Provider Active Erica Santana MD Attending Provider Active Team Status: Active Member Role Status Dates Geremias Herron MD Primary Care Provider Active Team Status: Inactive Member Role Status Dates Geremias Herron MD Primary Care Provider Active Matthias Zelaya MD Attending Provider Active Team Status: Inactive Member Role Status Dates Geremias Herron MD Primary Care Provider, Attending Pro vider Active Goals (unrecognized section and content) Goals may be documented in a n alternate section FOR RECORDS PERTAINING TO PATIENTS WHO ARE OR HAVE BEEN ENROLLED IN A CHEMICAL DEPENDENCY/SUBSTANCEABUSE PROGRAM, SOME INFORMATION MAY BE OMITTED. This clinical summary was aggregated from multiple sources. Caution should be exercised in using it in the provision of clinical care. This summary normalizes information from multiple sources, and as a consequence, information in this document may materially change the coding, format and clinical context of patient data. In addition, data may be omitted in some cases. CLINICAL DECISIONS SHOULD BE BASED ON THE PRIMARY CLINICAL RECORDS. [facility]. provides no warranty or guarantee of the accuracy or completeness of information in this document.
[2023-08-25 15:41] LABS: Free T4 0.99 ng/dL (0.76-1.46)
[2023-08-25 15:49] LABS: Free T3 1.98 pg/mL (2.18-3.98); Thyroid Stimulating Hormone 2.761 uIU/mL (0.358-3.740)
== END 2023-08-25 14:50 | disposition home or self-care (01) ==
LOC: LAB 14:52
PROVIDERS: PCP Family Medicine; Visit Provider Family Medicine
DX: E89.0 Postprocedural hypothyroidism (principal)
CPT/HCPCS: 36415; 84439; 84443; 84481

== ENCOUNTER 2023-12-11 10:53 | Outpatient (OUT) | payer OTHER, SELFPAY ==
--- OUTSIDE RECORDS SUMMARY | 2023-12-11 10:56 | XMS_ITS | CCD ---
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 Unavailable Unavailable Kafity, Bill A. Unavailable Unavailable Kafity, Bill A. Unavailable Unavailable NONE, XXXX Unavailable Unavailable Drea Garcia Unavailable DR GEREMIAS HERRON Admitting Unavailable NADERER, DR GEREMIAS oHdges Attending Unavailable GOPAL, DR GEREMIAS Hodges Primary Care Unavailable SHITALERECary, DR GEREMIAS Hodges Consulting Unavailable SHITALERECary, DR GEREMIAS Hodges Admitting Unavailable SHITALERECary, DR GEREMIAS Hodges Attending Unavailable SHITALERER, DR GEREMIAS Hodges Primary Care Unavailable GOPAL, DR GEREMIAS Hodges Consulting Unavailable MD Geremias Herron Primary Care Provider MD Erica Santana Attending Provider MD Geremias Herron Primary Care Provider MD Matthias Zelaya Attending Provider MD Geremias Herron Attending Provider Geremias Herron Primary Care Unavailable Matthias Zelaya Admitting Unavailable Matthias Zelaya Attending Unavailable Geremias Herron Primary Care Unavailable Geremias Herron Attending Unavailable Geremias Herron Admitting Unavailable Geremias Herron Primary Care Unavailable Erica Santana Admitting Unavailable Erica Santana Attending Unavailable Gaurang, Laurie Unavailable GEREMIAS HERRON Attending Unavailable GEREMIAS HERRON Attending Unavailable Medications Current [...] Drug Class(es) Dates Sig (Normalized) Sig (Original) [id number] 200 actuat albuterol 0.09 mg/actuat metered dose [...] Reference Range Facility A1C with Estimated Average G oliver 02-01-2023 Glucose [Mass/Vol] 108 mg/dL Normal [facility] Comment on above: Result Comment: PERF ORMED BY: [facility] [address] [place] [address] PATHOLOGIST POPULATION GENETICIST BIANCA CIFUENTES M.D. Performed By: #### H EPATIC, BMP, T4F, LIPID, A1C WT eA, CBC, T3F, TSH3 #### [facility] [address] HbA1c (Bld) [Mass fraction] 5.4 % Normal 4.3-5.6 [facility] Comment on above: Result Comment: Incr eased risk for diabetes: 5.7 - 6.4 diabetes: >6.4 glycemic control for adults with diabetes: <7.0 Performed By: #### H EPATIC, BMP, T4F, LIPID, A1C WTH eA, CBC, T3F, TSH3 #### [facility] [address] [place] [address] [place] Alanine aminotransferase [En zymatic activity/volume] in Serum or PlasmaOrdered By: Geremias Herron on 02-01-2023 ALT [Catalytic activity/Vol] 21 U/L 7-52 [facility] Albumin [Mass/volume] in Ser um or Plasma by Bromocresol green (BCG) dye binding methoOrdered By: Geremias Herron on 02-01-2023 Albumin BCG dye [Mass/Vol] 4.1 g/dL 3.5-5.7 [facility] Alkaline phosphatase [Enzyma tic activity/volume] in Serum or PlasmaOrdered By: Geremias Herron on 02-01-2023 ALP [Catalytic activity/Vol] 62 U/L 34-104 [facility] Aspartate aminotransferase [ Enzymatic activity/volume] in Serum or PlasmaOrdered By: Geremias Herron on 02-01-2023 AST [Catalytic activity/Vol] 25 U/L 13-39 [facility] Basic Metabolic Panelon 01-08 Anion gap [Moles/Vol] 10.5 mmol/L Normal 6.0-15.0 [facility] Comment on above: Order Comment: PT NO T FASTING Performed By: #### H EPATIC, BMP, T4F, LIPID, A1C WTH eA, CBC, T3F, TSH3 #### [facility] [address] [place] [address] [place] Calcium [Mass/Vol] 8.8 mg/dL Normal 8.6-10.3 [facility] Comment on above: Order Comment: PT NO T FASTING Performed By: #### H EPATIC, BMP, T4F, LIPID, A1C WTH eA, CBC, T3F, TSH3 #### [facility] [address] [place] [address] [place] Chloride [Moles/Vol] 107 mmol/L Normal 98-107 [facility] Comment on above: Order Comment: PT NO T FASTING Performed By: #### H EPATIC, BMP, T4F, LIPID, A1C WTH eA, CBC, T3F, TSH3 #### [facility] [address] CO2 [Moles/Vol] 27.5 mmol/L Normal 21.0-31.0 [facility] Comment on above: Order Comment: PT NO T FASTING Performed By: #### H EPATIC, BMP, T4F, LIPID, A1C WTH eA, CBC, T3F, TSH3 #### [facility] [address] Creatinine [Mass/Vol] 0.84 mg/dL Normal 0.60-1.20 [facility] Comment on above: Order Comment: PT NO T FASTING Performed By: #### H EPATIC, BMP, T4F, LIPID, A1C WTH eA, CBC, T3F, TSH3 #### [address] GFR/1.73 sq M.predicted MDRD (S/P/Bld) [Vol rate/Area] mL/min/{1.73_m2} Normal [facility] Comment on above: Order Comment: PT NO T FASTING Performed By: #### H EPATIC, BMP, T4F, LIPID, A1C WTH eA, CBC, T3F, TSH3 #### [facility] [address] Glucose [Mass/Vol] 95 mg/dL Normal 70-100 [facility] Comment on above: Order Comment: PT NO T FASTING Result Comment: [place] Glucose Reference Range is dependent on time and content of last meal. Glucose of more than 200 mg/dL in a nonstressed, ambulatory subject supports the diagnosis of Diabetes Mellitus. ADA recommended reference range Performed By: #### H EPATIC, BMP, T4F, LIPID, A1C WTH eA, CBC, T3F, TSH3 #### [facility] [address] Potassium [Moles/Vol] 4.0 mmol/L Normal 3.5-5.1 [facility] Comment on above: Order Comment: PT NO T FASTING Performed By: #### H EPATIC, BMP, T4F, LIPID, A1C WTH eA, CBC, T3F, TSH3 #### [facility] [address] Sodium [Moles/Vol] 141 mmol/L Normal 136-145 [facility] Comment on above: Order Comment: PT NO T FASTING Performed By: #### H EPATIC, BMP, T4F, LIPID, A1C WTH eA, CBC, T3F, TSH3 #### [facility] [address] Urea nitrogen [Mass/Vol] 12 mg/dL Normal 7-25 [facility] Comment on above: Order Comment: PT NO T FASTING Performed By: #### H EPATIC, BMP, T4F, LIPID, A1C WTH eA, CBC, T3F, TSH3 #### [facility] [address] Basophils Auto (Bld) [#/Vol] Ordered By: Geremias Herron on 02-01-2023 Basophils (Bld) [#/Vol] 0.0 10*3/uL 0.0-0.2 [facility] Basophils/100 WBC Auto (Bld) Ordered By: Geremias Herron on 02-01-2023 Basophils/100 WBC (Bld) 0.4 % . [facility] Bilirubin.direct [Mass/volum e] in Serum or PlasmaOrdered By: Geremias Herron on 02-01-2023 Bilirubin.direct [Mass/Vol] 0.10 mg/dL 0.03-0.18 [facility] Bilirubin.total [Mass/volume ] in Serum or PlasmaOrdered By: Geremias Herron on 02-01-2023 Bilirubin [Mass/Vol] 0.4 mg/dL 0.3-1.0 [facility] Calcium [Mass/volume] in Ser um or PlasmaOrdered By: Geremias Herron on 02-01-2023 Calcium [Mass/Vol] 8.8 mg/dL 8.6-10.3 [facility] Carbon dioxide, total [Moles /volume] in Serum or PlasmaOrdered By: Geremias Herron on 02-01-2023 CO2 [Moles/Vol] 27.5 mmol/L 21.0-31.0 [facility] Chloride [Moles/volume] in S anjana or PlasmaOrdered By: Geremias Herron on 02-01-2023 Chloride [Moles/Vol] 107 mmol/L 98-107 [facility] Cholesterol [Mass/volume] in Serum or PlasmaOrdered By: Geremias Herron on 02-01-2023 Cholesterol [Mass/Vol] 144 mg/dL 140-200 [facility] Comment on above: Chol less than 200 m g/dl low riskChol 201-239 mg/dl borderline riskChol 240 mg/dl and greater high risk Cholesterol in LDL Calc [Mas s/Vol]Ordered By: Geremias Herron on 02-01-2023 Cholesterol in LDL [Mass/Vol] 81 mg/dL 0-100 [facility] Comment on above: LDL ATP III CLASSIFI CATIONLDL less than 100 mg/dL OptimalLDL 100-129 mg/dL Near or above optimalLDL 130-159 mg/dL Borderline highLDL 160-189 mg/dL HighLDL greater than 189 mg/dL Very high Cholesterol in VLDL Calc [Ma ss/Vol]Ordered By: Geremias Herron on 02-01-2023 Cholesterol in VLDL [Mass/Vol] 14 mg/dL [facility] Complete Blood Count Auto Di ffon 02-01-2023 Basophils (Bld) [#/Vol] 0.0 10*3/uL Normal 0.0-0.2 [facility] Comment on above: Result Comment: PERF ORMED BY: [place] [address] PATHOLOGIST POPULATION GENETICIST BIANCA CIFUENTES M.D. Performed By: #### H EPATIC, BMP, T4F, LIPID, A1C WTH eA, CBC, T3F, TSH3 #### [facility] [address] [place] [id number] [place] Basophils/100 WBC (Bld) 0.4 % Normal . [facility] Comment on above: Performed By: #### H EPATIC, BMP, T4F, LIPID, A1C WTH eA, CBC, T3F, TSH3 #### [facility] [address] [place] [id number] [place] Eosinophils (Bld) [#/Vol] 0.2 10*3/uL Normal 0.0-0.45 [facility] Comment on above: Performed By: #### H EPATIC, BMP, T4F, LIPID, A1C WTH eA, CBC, T3F, TSH3 #### [facility] [address] [place] [address] [place] Eosinophils/100 WBC (Bld) 2.2 % Normal . [facility] Comment on above: Performed By: #### H EPATIC, BMP, T4F, LIPID, A1C WTH eA, CBC, T3F, TSH3 #### [address] Erythrocyte distribution width (RBC) [Ratio] 13.8 % Normal 11.9-15.3 [facility] Comment on above: Performed By: #### H EPATIC, BMP, T4F, LIPID, A1C WTH eA, CBC, T3F, TSH3 #### [address] Hematocrit (Bld) [Volume fraction] 37.7 % Normal 34.0-46.4 [facility] Comment on above: Performed By: #### H EPATIC, BMP, T4F, LIPID, A1C WTH eA, CBC, T3F, TSH3 #### [address] Hemoglobin (Bld) [Mass/Vol] 12.8 g/dL Normal 11.8-15.4 [facility] Comment on above: Performed By: #### H EPATIC, BMP, T4F, LIPID, A1C WTH eA, CBC, T3F, TSH3 #### [address] Lymphocytes (Bld) [#/Vol] 3.0 10*3/uL Normal 1.00-4.8 [facility] Comment on above: Performed By: #### H EPATIC, BMP, T4F, LIPID, A1C WTH eA, CBC, T3F, TSH3 #### [place] [address] [place] Lymphocytes/100 WBC (Bld) 37.3 % Normal . [facility] Comment on above: Performed By: #### H EPATIC, BMP, T4F, LIPID, A1C WTH eA, CBC, T3F, TSH3 #### [address] MCH (RBC) [Entitic mass] 27.9 pg Normal 24.7-34.3 [facility] Comment on above: Performed By: #### H EPATIC, BMP, T4F, LIPID, A1C WTH eA, CBC, T3F, TSH3 #### [address] MCV (RBC) [Entitic vol] 82.3 fL Normal 80-100 [facility] Comment on above: Performed By: #### H EPATIC, BMP, T4F, LIPID, A1C WTH eA, CBC, T3F, TSH3 #### [address] Mean Corpuscular HGB Conc 33.9 g/dL Normal 32.0-35.0 [facility] Comment on above: Performed By: #### H EPATIC, BMP, T4F, LIPID, A1C WTH eA, CBC, T3F, TSH3 #### [address] Monocytes (Bld) [#/Vol] 0.8 10*3/uL Normal 0.0-0.8 [facility] Comment on above: Performed By: #### H EPATIC, BMP, T4F, LIPID, A1C WTH eA, CBC, T3F, TSH3 #### [address] Monocytes/100 WBC (Bld) 10.5 % Normal . [facility] Comment on above: Performed By: #### H EPATIC, BMP, T4F, LIPID, A1C WTH eA, CBC, T3F, TSH3 #### [address] Neutrophils (Bld) [#/Vol] 4.0 10*3/uL Normal 1.8-7.7 [facility] Comment on above: Performed By: #### H EPATIC, BMP, T4F, LIPID, A1C WTH eA, CBC, T3F, TSH3 #### [address] Neutrophils/100 WBC (Bld) 49.6 % Normal . [facility] Comment on above: Performed By: #### H EPATIC, BMP, T4F, LIPID, A1C WTH eA, CBC, T3F, TSH3 #### [address] NRBC% 0.2 /100{WBC} Normal 0-0.5 [facility] Comment on above: Performed By: #### H EPATIC, BMP, T4F, LIPID, A1C WTH eA, CBC, T3F, TSH3 #### [address] Platelet mean volume (Bld) [Entitic vol] 6.4 fL Normal 6.3-10.7 [facility] Comment on above: Performed By: #### H EPATIC, BMP, T4F, LIPID, A1C WTH eA, CBC, T3F, TSH3 #### [address] Platelets (Bld) [#/Vol] 389 10*3/uL Normal 150-450 [facility] Comment on above: Performed By: #### H EPATIC, BMP, T4F, LIPID, A1C WTH eA, CBC, T3F, TSH3 #### [address] RBC (Bld) [#/Vol] 4.58 10*6/uL Normal 3.60-5.00 [facility] Comment on above: Performed By: #### H EPATIC, BMP, T4F, LIPID, A1C WTH eA, CBC, T3F, TSH3 #### [address] WBC (Bld) [#/Vol] 8.1 10*3/uL Normal 3.8-11.6 [facility] Comment on above: Performed By: #### H EPATIC, BMP, T4F, LIPID, A1C WTH eA, CBC, T3F, TSH3 #### [facility] [address] [place] [address] [place] Creatinine [Mass/volume] in Serum or PlasmaOrdered By: Geremias Herron on 02-01-2023 Creatinine [Mass/Vol] 0.84 mg/dL 0.60-1.20 [facility] Eosinophils Auto (Bld) [#/Vo l]Ordered By: Geremias Herron on 02-01-2023 Eosinophils (Bld) [#/Vol] 0.2 10*3/uL 0.0-0.45 [facility] Eosinophils/100 WBC Auto (Bl d)Ordered By: Geremias Herron on 02-01-2023 Eosinophils/100 WBC (Bld) 2.2 % . [facility] Erythrocyte distribution wid th Auto (RBC) [Ratio]Ordered By: Geremias Herron on 02-01-2023 Erythrocyte distribution width (RBC) [Ratio] 13.8 % 11.9-15.3 [facility] Free T4 (Free Thyroxine)on 0 02-01-2023 Free T4 [Mass/Vol] 1.51 ng/dL High 0.61-1.12 [facility] Comment on above: Order Comment: PT NO T FASTING Performed By: #### H EPATIC, BMP, T4F, LIPID, A1C WTH eA, CBC, T3F, TSH3 #### [facility] [address] [place] [id number] [facility] Globulin Calc (S) [Mass/Vol] Ordered By: Geremias Herron on 02-01-2023 Globulin (S) [Mass/Vol] 1.9 g/dL [facility] Glucose [Mass/volume] in Ser um or PlasmaOrdered By: Geremias Herron on 02-01-2023 Glucose [Mass/Vol] 95 mg/dL 70-100 [facility] Comment on above: ADA recommended refe rence rangeRandom Glucose Reference Range is dependent on time and content of last meal. Glucose of more than 200 mg/dL in a nonstressed, ambulatory subject supports the diagnosis of Diabetes Mellitus. Glucose mean value [Mass/vol ume] in Blood Estimated from glycated hemoglobinOrdered By: Geremias Herron on 02-01-2023 Average glucose Estimated from glycated hemoglobin (Bld) [Mass/Vol] 108 mg/dL [facility] Hematocrit Auto (Bld) [Volum e fraction]Ordered By: Geremias Herron on 02-01-2023 Hematocrit (Bld) [Volume fraction] 37.7 % 34.0-46.4 [facility] Hemoglobin A1c percentageOrd ered By: Geremias Herron on 02-01-2023 HbA1c (Bld) [Mass fraction] 5.4 % 4.3-5.6 [facility] Comment on above: Increased risk for d iabetes: 5.7 - 6.4diabetes: >6.4glycemic control for adults with diabetes: <7.0 Hemoglobin [Mass/volume] in BloodOrdered By: Geremias Herron on 02-01-2023 Hemoglobin (Bld) [Mass/Vol] 12.8 g/dL 11.8-15.4 [facility] Hepatic Panelon 02-01-2023 Albumin [Mass/Vol] 4.1 g/dL Normal 3.5-5.7 [facility] Comment on above: Order Comment: PT NO T FASTING Performed By: #### H EPATIC, BMP, T4F, LIPID, A1C WTH eA, CBC, T3F, TSH3 #### [facility] [address] Albumin/Globulin [Mass ratio] 2.2 {ratio} Normal [facility] Comment on above: Order Comment: PT NO T FASTING Performed By: #### H EPATIC, BMP, T4F, LIPID, A1C WTH eA, CBC, T3F, TSH3 #### [facility] [address] [place] [id number] [place] ALP [Catalytic activity/Vol] 62 U/L Normal 34-104 [facility] Comment on above: Order Comment: PT NO T FASTING Performed By: #### H EPATIC, BMP, T4F, LIPID, A1C WTH eA, CBC, T3F, TSH3 #### [facility] [address] [place] [id number] [place] ALT [Catalytic activity/Vol] 21 U/L Normal 7-52 [facility] Comment on above: Order Comment: PT NO T FASTING Performed By: #### H EPATIC, BMP, T4F, LIPID, A1C WTH eA, CBC, T3F, TSH3 #### [facility] [address] [place] [address] AST [Catalytic activity/Vol] 25 U/L Normal 13-39 [facility] Comment on above: Order Comment: PT NO T FASTING Performed By: #### H EPATIC, BMP, T4F, LIPID, A1C WTH eA, CBC, T3F, TSH3 #### [facility] [address] [place] [address] Bilirubin [Mass/Vol] 0.4 mg/dL Normal 0.3-1.0 [facility] Comment on above: Order Comment: PT NO T FASTING Performed By: #### H EPATIC, BMP, T4F, LIPID, A1C WTH eA, CBC, T3F, TSH3 #### [facility] [address] [place] [address] Bilirubin,Indirect 0.3 mg/dL Normal [facility] Comment on above: Order Comment: PT NO T FASTING Performed By: #### H EPATIC, BMP, T4F, LIPID, A1C WTH eA, CBC, T3F, TSH3 #### [facility] [address] [place] [address] Bilirubin.indirect [Mass/Vol] 0.10 mg/dL Normal 0.03-0.18 [facility] Comment on above: Order Comment: PT NO T FASTING Performed By: #### H EPATIC, BMP, T4F, LIPID, A1C WTH eA, CBC, T3F, TSH3 #### [facility] [address] [place] [address] Globulin (S) [Mass/Vol] 1.9 g/dL Normal [facility] Comment on above: Order Comment: PT NO T FASTING Performed By: #### H EPATIC, BMP, T4F, LIPID, A1C WTH eA, CBC, T3F, TSH3 #### [facility] [address] [place] [address] Protein [Mass/Vol] 6.0 g/dL Low 6.4-8.9 [facility] Comment on above: Order Comment: PT NO T FASTING Performed By: #### H EPATIC, BMP, T4F, LIPID, A1C WTH eA, CBC, T3F, TSH3 #### [facility] [address] [place] [id number] [place] Leukocytes [#/volume] correc sumit for nucleated erythrocytes in Blood by Automated counOrdered By: Geremias Herron on 02-01-2023 WBC corrected for nucl RBC Auto (Bld) [#/Vol] 8.1 10*3/uL 3.8-11.6 [facility] Lipid Panelon 02-01-2023 Cholesterol [Mass/Vol] 144 mg/dL Normal 140-200 [facility] Comment on above: Order Comment: PT NO T FASTING Result Comment: Chol less than 200 mg/dl low risk Chol 201-239 mg/dl borderline risk Chol 240 mg/dl and greater high risk Performed By: #### H EPATIC, BMP, T4F, LIPID, A1C WTH eA, CBC, T3F, TSH3 #### [facility] [address] [place] [id number] [place] Cholesterol in HDL [Mass/Vol] 49 mg/dL Normal 23-92 [facility] Comment on above: Order Comment: PT NO T FASTING Result Comment: HDL CHOL ATP-III CLASSIFICATION Cardiovascular Risk HDL > or equal to 60 mg/dL LOW HDL < 40 mg/dL HIGH Performed By: #### H EPATIC, BMP, T4F, LIPID, A1C WTH eA, CBC, T3F, TSH3 #### [facility] [address] [place] [address] [facility] Cholesterol.total/Chol esterol in HDL [Mass ratio] 2.9 {ratio} Normal <5.0 [facility] Comment on above: Order Comment: PT NO T FASTING Performed By: #### H EPATIC, BMP, T4F, LIPID, A1C WTH eA, CBC, T3F, TSH3 #### [facility] [address] [place] [address] [place] LDL Cholesterol,Calculated 81 mg/dL Normal 0-100 [facility] Comment on above: Order Comment: PT NO T FASTING Result Comment: LDL ATP III CLASSIFICATION LDL less than 100 mg/dL Optimal LDL 100-129 mg/dL Near or above optimal LDL 130-159 mg/dL Borderline high LDL 160-189 mg/dL High LDL greater than 189 mg/dL Very high Performed By: #### H EPATIC, BMP, T4F, LIPID, A1C WTH eA, CBC, T3F, TSH3 #### [facility] [address] Triglyceride w/Reflex 71 mg/dL Normal 0-149 [facility] Comment on above: Order Comment: PT [...] WTH eA, CBC, T3F, TSH3 #### [facility] [address] VLDL CHOLESTEROL 14 mg/dL Normal [facility] Comment on above: Order Comment: PT NO T FASTING Performed By: #### H EPATIC, BMP, T4F, LIPID, A1C WTH eA, CBC, T3F, TSH3 #### [facility] [address] Lymphocytes Auto (Bld) [#/Vo l]Ordered By: Geremias Herron on 02-01-2023 Lymphocytes (Bld) [#/Vol] 3.0 10*3/uL 1.00-4.8 [facility] Lymphocytes/100 WBC Auto (Bl d)Ordered By: Geremias Herron on 02-01-2023 Lymphocytes/100 WBC (Bld) 37.3 % . [facility] MCH Auto (RBC) [Entitic mass ]Ordered By: Geremias Herron on 02-01-2023 MCH (RBC) [Entitic mass] 27.9 pg 24.7-34.3 [facility] MCHC Auto (RBC) [Mass/Vol]Or dered By: Geremias Herron on 02-01-2023 MCHC (RBC) [Mass/Vol] 33.9 g/dL 32.0-35.0 [facility] MCV Auto (RBC) [Entitic vol] Ordered By: Geremias Herron on 02-01-2023 MCV (RBC) [Entitic vol] 82.3 fL 80-100 [facility] Monocytes Auto (Bld) [#/Vol] Ordered By: Geremias Herron on 02-01-2023 Monocytes (Bld) [#/Vol] 0.8 10*3/uL 0.0-0.8 [facility] Monocytes/100 WBC Auto (Bld) Ordered By: Geremias Herron on 02-01-2023 Monocytes/100 WBC (Bld) 10.5 % . [facility] Neutrophils Auto (Bld) [#/Vo l]Ordered By: Geremias Herron on 02-01-2023 Neutrophils (Bld) [#/Vol] 4.0 10*3/uL 1.8-7.7 [facility] Neutrophils/100 WBC Auto (Bl d)Ordered By: Geremias Herron on 02-01-2023 Neutrophils/100 WBC (Bld) 49.6 % . [facility] No Panel InformationOrdered By: Geremias Herron on 02-01-2023 Estimated GFR (CKD-EPI) > 60.0 mL/Min [facility] Creatinine Clearance (Chem N/A [facility] Nucleated erythrocytes [Pres ence] in Blood by Automated countOrdered By: Geremias Herron on 02-01-2023 Nucleated RBC Auto Ql (Bld) 0.2 /100{WBC} 0-0.5 [facility] Platelet mean volume Auto (B ld) [Entitic vol]Ordered By: Geremias Herron on 02-01-2023 Platelet mean volume (Bld) [Entitic vol] 6.4 fL 6.3-10.7 [facility] Platelets Auto (Bld) [#/Vol] Ordered By: Geremias Herron on 02-01-2023 Platelets (Bld) [#/Vol] 389 10*3/uL 150-450 [facility] Potassium [Moles/volume] in Serum or PlasmaOrdered By: Geremias Herron on 02-01-2023 Potassium [Moles/Vol] 4.0 mmol/L 3.5-5.1 [facility] Protein [Mass/volume] in Ser um or PlasmaOrdered By: Geremias Herron on 02-01-2023 Protein [Mass/Vol] 6.0 g/dL 6.4-8.9 [facility] RBC Auto (Bld) [#/Vol]Ordere d By: Geremias Herron on 02-01-2023 RBC (Bld) [#/Vol] 4.58 10*6/uL 3.60-5.00 [facility] Serum or plasma albumin/glob ulin mass ratioOrdered By: Geremias Herron on 02-01-2023 Albumin/Globulin [Mass ratio] 2.2 {ratio} [facility] Serum or plasma anion gap de terminationOrdered By: Geremias Herron on 02-01-2023 Anion gap [Moles/Vol] 10.5 mmol/L 6.0-15.0 [facility] Serum or plasma high density lipoprotein (HDL) cholesterol measurementOrdered By: Geremias Herron on 02-01-2023 Cholesterol in HDL [Mass/Vol] 49 mg/dL 23-92 [facility] Comment on above: HDL CHOL ATP-III CLA SSIFICATION Cardiovascular RiskHDL > or equal to 60 mg/dL LOWHDL < 40 mg/dL HIGH Serum or plasma non-glucuron idated bilirubin measurement (mass/volume)Ordered By: Geremias Herron on 02-01-2023 Bilirubin.indirect [Mass/Vol] 0.3 mg/dL [facility] Serum or plasma total choles terol/high density lipoprotein (HDL) cholesterol mass ratOrdered By: Geremias Herron on 02-01-2023 Cholesterol.total/Chol esterol in HDL [Mass ratio] 2.9 {ratio} <5.0 [facility] Sodium [Moles/volume] in Ser um or PlasmaOrdered By: Geremias Herron on 02-01-2023 Sodium [Moles/Vol] 141 mmol/L 136-145 [facility] Thyroid Stimulating Hormoneo n 02-01-2023 TSH Qn 0.02 m[IU]/L Low 0.45-5.33 [facility] Comment on above: Order Comment: PT NO T FASTING Result Comment: PERF ORMED BY: [place] [address] PATHOLOGIST POPULATION GENETICIST BIANCA CIFUENTES M.D. Performed By: #### H EPATIC, BMP, T4F, LIPID, A1C WTH eA, CBC, T3F, TSH3 #### [facility] [address] [place] [address] [facility] Thyrotropin [Units/volume] i n Serum or PlasmaOrdered By: Geremias Herron on 02-01-2023 TSH Qn 0.02 m[IU]/L 0.45-5.33 [facility] Thyroxine (T4) free [Mass/vo lume] in Serum or PlasmaOrdered By: Geremias Herron on 02-01-2023 Free T4 [Mass/Vol] 1.51 ng/dL 0.61-1.12 [facility] Triglyceride [Mass/volume] i n Serum or PlasmaOrdered By: Geremias Herron on 02-01-2023 Triglyceride [Mass/Vol] 71 mg/dL 0-149 [facility] Comment on above: TRIG ATP III CLASSIF ICATIONTRIG less than 150 mg/dL NormalTRIG 150-199 mg/dL Borderline highTRIG 200-500 mg/dL High TRIG greater than 500 mg/dL Very highStandard traceable to the Center for Disease Conrtrol and Prevention (CDC) test method. Triiodothyronine (T3) Freeon 02-01-2023 Triiodothyronine (T3) Free 3.37 pg/mL Normal 2.50-3.90 [facility] Comment on above: Result Comment: PERF ORMED BY: [place] [address] PATHOLOGIST POPULATION GENETICIST BIANCA CIFUENTES M.D. Performed By: #### H EPATIC, BMP, T4F, LIPID, A1C WTH eA, CBC, T3F, TSH3 #### [facility] [address] [place] [address] [facility] Triiodothyronine (T3) Free [ Mass/volume] in Serum or PlasmaOrdered By: Geremias Herron on 02-01-2023 Free T3 [Mass/Vol] 3.37 pg/mL 2.50-3.90 [facility] Urea nitrogen [Mass/volume] in Serum or PlasmaOrdered By: Geremias Herron on 02-01-2023 Urea nitrogen [Mass/Vol] 12 mg/dL 03-02 [facility] WBC Auto (Bld) [#/Vol]Ordere d By: Geremias Herron on 02-01-2023 WBC (Bld) [#/Vol] 8.1 10*3/uL 3.8-11.6 [facility] Eriberto 01-19-2023 L ----- Specimen: [id number] Received: 01/19/23 Status: CHATA Lopez Num: [id number] Spec Type: Surgical Subm Dr: Matthias Zelaya MD Tissues: A Soft Tissue/Surgical Margin-Other than Tumor,Mass,Lip or Alka (RT UPPER ARM) Procedures: HE/2, Gross/Micro L4 Age/ Patient Sex Location Account Attending Physician Olivia Burgess/Maren GOODWIN [id number] Matthias Zelaya MD SPEC NUM: [id number] RECD: 01/19/23 STATUS: CHATA LOPEZ NUM: [id number] LISETTE: 01/19/[address] [facility] [address]: Matthias Zelaya MD ENTERED: 01/19/[address] [facility] [address]: JACOB TYPE: Surgical DEPT: S ORDERED: [...] in 1 cassette labeled A1. CPT Codes 78075 Specimen: [id number] Received: 01/19/23 Status: CHATA Lopez Num: [id number] Spec Type: Surgical Subm Dr: Matthias Zelaya MD Tissues: A Soft Tissue/Surgical Margin-Other than Tumor,Mass,Lip or Alka (RT UPPER ARM) Procedures: HE/2, Gross/Micro L4 Patient: Olivia Burgess [id number] (Continued) Signed (signature on file) Debra Samayoa MD 01/20/23 1447 Normal [facility] XR knee RT 4V*on 10-12-2022 XR knee RT 4V* [facility] [place] [address] XRay Report Signed Patient: Olivia Burgess MR#: [id number] : 1995 Acct:[id number] Age/Sex: 27 / F ADM Date: 10/12/22 Loc: XD Room: Type: [facility] Attending Dr: Erica Santana MD Copies to: Erica Santana MD Ordering Provider: Erica Santana MD Date of Service: 10/12/22 XR/XR knee RT 4V*: M25.561 ([id number]) XR/XR hand RT min 3V*: M79.641 RIGHT [...] PROCESS. Impression dictated by: Arash Doherty Jr., D.O.10/12/2022 12:58 PM Dictation Location: [place] [address] Transcribed By: [facility] 10/12/22 1258 Dictated By: Arash Doherty Jr, DO 10/12/22 1256 Signed By: 10/12/22 1258 [facility] FREE T3on 06-26-2022 FREE T3 3.35 pg/mlL Normal 2.18-3.98 [facility] Comment on above: Performed By: #### F T3, TSH #### [facility] [address] [place] [address] [address] Izabella Weinberg FREE T4on 06-26-2022 Free T4 [Mass/Vol] 1.50 ng/dL Critically high 0.76-1.[address] [facility] Comment on above: Performed By: #### F T4 #### [facility] [address] [place] [address] [address] Izabella Weinberg TSHon 06-26-2022 TSH 0.246 uIU/mL Critically low 0.358-3.74 0 [facility] Comment on above: Performed By: #### F T3, TSH #### [facility] [address] [address] [address] Izabella Weinberg FREE T3on 06-02-2022 FREE T3 2.18 pg/mlL Normal 2.18-3.98 [facility] Comment on above: Performed By: #### T SH, FT3 #### [facility] [address] [place] [address] [address] Izabella Weinberg FREE T4on 06-02-2022 Free T4 [Mass/Vol] 1.26 ng/dL Normal 0.76-1.46 [facility] Comment on above: Performed By: #### F T4 #### [facility] [address] [place] [address] [address] Iz[address] Weinberg TSHon 06-02-2022 TSH 4.546 uIU/mL Critically high 0.358-3.74 0 [facility] Comment on above: Performed By: #### T SH, FT3 #### [facility] [address] [place], [place] [address] Dr. Izabella Weinberg COVID Quick Testingon 2021 Result Negative [facility] Other Quick Fluon 09-30-2021 FLUAV Ab CF (S) [Titer] Negative [facility] Other FLUBV Ab CF (S) [Titer] Negative [facility] Other Coding Summary.on 03-18-2017 Coding Summary. CODING DATE: 017 [facility] STATUS: Home (Routine DC) PAYOR: Commercial Insurance APC DESCRIPTION 5312 Level 2 Lower GI Procedures ADMIT DX: REASON FOR VISIT DX: R19.7 Diarrhea, unspecified FINAL DX: PRINCIPAL: R19.7 Diarrhea, unspecified SECONDARY: K64.8 Other hemorrhoids E03.9 Hypothyroidism, unspecified E28.2 Polycystic ovarian syndrome Z79.84 long term (current) use of oral hypoglycemic drugs PYMT PROC APC STAT DESCRIPTION DOCTOR NAME DATE 66575 5312 T Colonoscopy, flexible; Ravindra DELANEY Bill A. 03/15/2017 with biopsy, single or multiple 76966 Anesthesia for lower Bill Waite DO A. 03/15/2017 intestinal endoscopic procedures, endoscope introduced distal to duodenum NOTE: The code number assigned matches the documented diagnosis and / or procedure in the patient's chart. However, the narrative phrase printed from the coding software may appear abbreviated, or result in slightly different terminology. Coded By: Edith Chavarria Date Saved: 03/18/2017 07:59 am Normal [facility] IgA, Quant.on 03-17-2017 IgA 175 mg/dL Invalid Interpretation Code 87-[address] [facility] Comment on above: Result Comment: Perf ormed at: [facility] [place], [place] [id number] PhD Yanick Smith Performed By: #### 2 [id number], [id number], [id number] ####[facility] [address] [place] [address] t-TRANSGLUTAMINASE IgAon Tissue transglutaminase antibody <2 Invalid Interpretation Code 0-[address] [facility] Comment on above: Result Comment: Nega tive 0 - 3Weak Positive 4 - 10Positive >10Tissue Transglutaminase (tTG) has been identifiedas the endomysial antigen. Studies have demonstr-ated that endomysial IgA antibodies have over 99%specificity for gluten sensitive enteropathy.Performed at: [facility] [place], [place] [id number] PhD Yanick Smith Performed By: #### 2 [id number], [id number], [id number] ####[facility] [address] [place] [address] Main OR Intraoperative Recor don 03-16-2017 Main OR Intraoperative Record IntraOp Document Type FT Summary Primary Physician: Bill Waite DO Finalized Date/Time: 03/16/17 07:16:04 Pt. Name: OLIVIA BURGESS/Sex: 1995 Female Med Rec #: [id number] Physician: Bill Waite DO Financial #: [id number] Pt. Type: O Room/Bed: / Admit/Disch: 03/15/17 [...] opened to review and send charges Matthew program manager environmental planning Case Attendance FT Entry 1 Entry 2 Entry 3 Case Attendee Liliana Shirley RN, Daniella Gamez LPN, LEVEL VIAL GRINDER, Tracy Rivera Role Performed Anesthesiologist Heel Varnisher - Primary Scrub - Other Electrophysiology Tech Time In 03/15/17 15:01:00 03/15/17 15:01:00 03/15/17 15:01:00 Time Out 03/15/17 15:19:00 03/15/17 15:19:00 03/15/17 15:19:00 Procedure COLONOSCOPY(.) COLONOSCOPY(.) COLONOSCOPY(.) Comments With Dr. Saxena Last Modified By: Viktoria STEWARD, Daniella Blum RN, Daniella Blum RN, Daniella 03/15/17 15:17:34 03/15/17 15:17:34 03/15/17 15:17:34 Entry 4 Entry 5 Case Attendee Darya ZIEGLER, Bill Mckinley DO Role Performed Scrub - Primary Surgeon - Primary Time In 03/15/17 15:01:00 03/15/17 15:01:00 Time Out 03/15/17 15:19:00 03/15/17 15:19:00 Procedure COLONOSCOPY(.) COLONOSCOPY(.) Comments Last Modified By: Viktoira STEWARD, Daniella Blum RN, Daniella 03/15/17 15:17:34 03/15/17 [...] No Time Out Liliana Shirley, Given Participants Viktoria STEWARD, Ravindra Brewer DO, Alfred A., Eppse CST, Hetal Auguste Time Out Complete 03/15/17 15:04:00 Outcomes Met? [...] caused by extraneous objects Transport To OR Pre-Care Text: Transports according to individual needs. [...] injury related to transfer/transport Departure From OR Pre-Care Text: Transports according to individual needs. Evaluates for signs and symptoms of skin and tissue injury as a result of transfer or transport. Entry 1 Via Cart Safety Precautions Safety Strap, Side Rails Up PostOp Destination PACU Transported By Daniella Blum RN Patient Status Stable Skin. Condition Intact, Bol[place], Warm, and Dry Airway Maintenance Oxygen in Use? No Outcomes Met? Yes Last Modified By: Daniella Blum RN 03/15/17 10:05:00 Post-Care Text: The patient is free from signs and symptoms of injury related to transfer/transport General Comments: Report given to sample worker. RHRN Medication Administration FT Pre-Care Text: Verifies allergies, administers prescribed medications and solutions, administers prescribed antibiotic therapy and immunizing agents as ordered, evaluates response to medications Administers prescribed medications and solutions Entry 1 Expiration Date Yes Outcomes Met? Yes Verified Last Modified By: Daniella Blum RN 03/15/17 10:05:09 Post-Care Text: The patient received appropriate medication(s) safely administered during the perioperative period For [facility] please see scanned medication reconcilliation form for [...] 15:19 Dania Curtis CST 03/16/17 07:[address] [facility] CRPon 03-15-2017 C reactive protein (CRP) 1.1 mg/dL Normal <=1.[address] [facility] Comment on above: Performed By: #### 2 [id number], [id number], [id number] ####[facility] [address] [place] [address] History and Physicalon 03-15 History and Physical Date: 03/03/2017 8:4 5 AMPatient Name: Olivia De Los Santos #: [id number]: FemaleDOB (age): 1995 (21)Provider: Mirela Shepherd Complaint: [...] pain, wearing glasses/contacts.Printed on 03/12/2017 Olivia Burgess, [address], 1995Gastrointestinal : Complains of abdominal pain, belching, [...] hythm Weight (lbs/oz) Height (ft/in) BMI Resp/min Jqpa815/86 86 Regular 241 / 33.61 12 98.2 [...] him next weekPrinted on 03/12/2017 Olivia Burgess, [address], 1995HypothyroidismPo lycystic ovariesPlan: *Dietary Management GuidanceColonoscopy will be performed at [facility] .To be drawn at time of procedureLabs Ordered: Total serum IgALabs Ordered: T-transglutaminaseLabs Ordered: CRPRisk & Medical Necessity: Diagnosis and management options are Extensive. The amount of data reviewedand/or ordered is Limited. The level of risk is Moderate.Bill Waite DO Olivia Burgess, [address], 1995Printed on 03/12/2017 Olivia Burgess, [address], 1995No change in the H&P. Normal [facility] Comment on above: Result Comment: Elec tronically Signed By: Bill Waite DO\.br\Date and Time Signed: 03/15/17 15:02 EDT Inpatient Patient Summaryon 03-15-2017 [facility] InstructionsPERSON INFORMATION Name: OLIVIA BURGESS PHYSICIANS Admitting Physician: Bill Waite DOAttending Physician: Bill Wiate DO PCP: NONE, XXXXDischarge Diagnosis: Comment: PATIENT EDUCATION INFORMATIONInstructions:C olonoscopy, Care AfterMedication Leaflets:Follow up:With: Address: When: Bill Waite [address] [place] [address] [address] [place] [address] Business (1) 03/29/17 07:45:00 Comments: Keep scheduled appointment MEDICATION LISTComment: Alma [facility] Main OR PACU I Recordon Main OR PACU I Record PACU Phase I Docum ent Type FT Summary Primary Physician: Bill Waite DO Finalized Date/Time: 03/15/17 16:11:59 Pt. Name: LEROY BURGESSESEQUIEL Hernandez/Sex: 1995 Female Med Rec #: [id number] Physician: Bill Waite DO Financial #: [id number] Pt. Type: O Room/Bed: / Admit/Disch: 03/15/17 [...] By: Edie Conti RN 03/15/17 16:[address] [facility] Main OR Preoperative Recordo n 03-15-2017 Main OR Preoperative Record Holding Area Document Type FT Summary Primary Physician: Bill Waite DO Finalized Date/Time: 03/15/17 14:09:49 Pt. Name: OLIVIA BURGESS/Sex: 1995 Female Med Rec #: [id number] Physician: Bill Waite DO Financial #: [id number] Pt. Type: O Room/Bed: / Admit/Disch: 03/15/17 [...] Pt completed prep at 1055 remained NPO since/ISMAEL,RN Finalized By: Barbara Murray RN Document Signatures Signed By: Barbara Murray RN 03/15/17 14:[address] [facility] Patient Education - Texton 0 03-15-2017 Patient [...] your health care provider. ? Only take zhvh-ray-ptmhqrj or prescription medicines as directed by your [...] 05/16/2014 Document Reviewed: 04/02/2014ExitCare? Patient Information ?2014 [employer]. This information is not intended to replace advice given to you by your health care provider. Make sure you discuss any questions you have with your health care provider. [facility] Progress Note-Physicianon Progress Note-Physician Patient: OLIVIA BURGESS Age: 21 years Sex: Female : 1995 Associated Diagnoses: None Author: eRinier Saxena Jr., DO Postoperative Information Post Operative [...] noted. Plan Transfer/ Discharge: Condition stable. Normal [facility] Comment on above: Result Comment: Elec tronically Signed By: Hemanth Hernandez DO, Reinier Valencia\.br\Date and Time Signed: 03/15/17 16:32 EDT Vital Signs Date Time Vital Sign Value Performing Clinician Facility 07-08-2023 09:10-0500 Body height 180.34 cm Laurie Gaurang Other [facility] Other 07-08-2023 09:10-0500 Body mass index (BMI) [Ratio] 35.06 kg/m2 Laurie Gaurang Other [facility] Other 07-08-2023 09:10-0500 Body temperature 99.1 [degF] Laurie Gaurang Other [facility] Other 07-08-2023 09:10-0500 Body weight 114.04 kg Laurei Gaurang Other [facility] Other 07-08-2023 09:10-0500 Respiratory rate 18 /min Laurie Gaurang Other [facility] Other 07-08-2023 09:10-0500 SaO2% (BldA) [Mass fraction] 98 % Laurie Gaurang Other [facility] Other 09-30-2021 13:45-0500 Body height 180.34 cm Drea Garcia Other [facility] Other 09-30-2021 13:45-0500 Body mass index (BMI) [Ratio] 36.26 kg/m2 Drea Garcia Other [facility] Other 09-30-2021 13:45-0500 Body temperature 97.3 [degF] Drea Garcia Other [facility] Other 09-30-2021 13:45-0500 Body weight 117.94 kg Drea Garcia Other [facility] Other 09-30-2021 13:45-0500 Respiratory rate 18 /min Drea Garcia Other [facility] Other 09-30-2021 13:45-0500 SaO2% (BldA) [Mass fraction] 97 % Drea Garcia Other [facility] Other Encounters Encounter Date Encounter Type Care Provider Facility Start: 12-08-2023 End: 12-08-2023 ambulatory GEREMIAS HERRON Not Available Start: 08-10-2023 End: 08-10-2023 ambulatory GEREMIAS HERRON Not Available Start: 07-08-2023 End: 07-08-2023 ambulatory Laurieaddis Merlos Other [facility] Other Start: 07-08-2023 Office outpatient vi sit 15 minutes Laurieaddis Merlos [facility] Start: 02-01-2023 End: 02-01-2023 ambulatory Geremias Herron Facility:[facility] Start: 02-01-2023 End: 02-01-2023 ambulatory MD Geremias Herron Work Phone: [facility] Work Phone: Start: 02-01-2023 End: 02-01-2023 Patient encounter procedure MD Geremias Herron Work Phone: [facility] [place] Work Phone: Start: 01-19-2023 End: 01-19-2023 ambulatory Geremias Herron Facility:[facility] Start: 01-19-2023 End: 01-19-2023 Departed Referred MD Geremias Herron Work Phone: [facility] [place] Work Phone: Start: 10-12-2022 End: 10-12-2022 ambulatory Geremias Herron Facility:[facility] Start: 10-12-2022 End: 10-12-2022 ambulatory MD Geremias Herron Work Phone: [facility] Work Phone: Start: 10-12-2022 End: 10-12-2022 Patient encounter procedure MD Geremias Herron Work Phone: [facility] [place] Work Phone: Start: 06-26-2022 End: 06-27-[address] GEREMIAS HERRON Facility:[facility] Start: 06-02-2022 End: 06-03-[address] GEREMIAS HERRON Facility:[facility] Start: 09-30-2021 End: 09-30-2021 ambulatory Drea Garcia Other [facility] Other Start: 09-30-2021 Office outpatient vi sit 15 minutes Drea Garcia [facility] [place] Start: 03-15-2017 End: 03-16-2017 Ambulatory Bill Waite Facility:[facility] Procedures Date Procedure Procedure Detail Performing Clinician Start: 10-12-2022 Plain X-ray of right hand MD Geremias Herron Work Phone: Start: 10-12-2022 X-ray of right knee MD Geremias Herron Work Phone: Payers Date Payer Category Payer Self-pay [id number] 2022 Unknown [id number] 2022 Unknown [id number] 2017 Private Health Insurance 1995 Unknown [id number] [id number] 1995 Unknown [id number]. [id number] 1995 Unknown [id number]. 2.1259 1959 Unknown [id number] Private Health Insurance [facility] [id number] Private Health Insurance [facility] [id number] Unknown Regular Insurance [id number] Unknown [id number] [id number]. 2.531 Unknown [id number] [id number]. 2.531 Unknown [id number] [id number]. 2.531 Social History Date Type Detail Facility Unknown if ever smoked [facility] [employer] Other Sex Assigned At Sex Assigned At [facility] Other Start: 02-16-2022 End: 02-16-2022 Tobacco smoking status NHIS Never smoked tobacco (finding) [facility] Start: 1995 Sex Assigned At Female F [facility] Evaluation note 07-08-2023 Note Date & [...] Acute right otitis media (ICD-10 - H66.91) [facility] Other Evaluation note 09-30-2021 Note Date & [...] Patient care instructions given in writting by [facility] Care At Home document. [facility] Other Evaluation note Note Date & Type Note Facility Evaluation note No assessment information availa ble [facility] Work Phone: History general Narrative - Reported Note Date & Type Note Facility History general Narrative - Reported Type Medical History polycystic ovaries Medical History HYPOTHYROID Medical History THYROID TUMOR Medical History LIPOMA Surgical History tonsillectomy Surgical History wisdom teeth extract Surgical History right thyroidectomy 10/23 Hospitalization History tonsillectomy Hospitalization History SEE ABOVE LIST [facility] Other Summary Purpose Family History No Family [...] section and content) DATE CREATED AUTHOR 02/02/2018 [facility] DATE CREATED AUTHOR AUTHOR'S ORGANIZ ATION 07/01/2022 [facility] DATE CREATED AUTHOR AUTHOR'S ORGANIZ ATION 03/25/2023 [facility] DATE CREATED AUTHOR AUTHOR'S ORGANIZ ATION 12/09/2023 [facility] EPIC REASON FOR VISIT (unrecogniz ed section and content) SINUS CONGESTION, H/A, SORE THROAT, SINCE SEP 8THlosing voice, right side of face in pain, [...] BE BASED ON THE PRIMARY CLINICAL RECORDS. [facility]. provides no warranty or guarantee of the accuracy or completeness of information in this document.
[2023-12-11 11:45] LABS: Free T4 0.87 ng/dL (0.76-1.46)
[2023-12-11 11:52] LABS: Free T3 1.82 pg/mL (2.18-3.98); Thyroid Stimulating Hormone 13.864 uIU/mL (0.358-3.740)
[2023-12-12 08:18] LABS: Testosterone 32 ng/dL (13-71)
[2023-12-12 11:10] LABS: Insulin 19.5 uIU/mL (2.6-24.9)
== END 2023-12-11 10:54 | disposition home or self-care (01) ==
LOC: LAB 10:55
PROVIDERS: PCP Family Medicine; Visit Provider Family Medicine
DX: E89.0 Postprocedural hypothyroidism (principal); E28.2 Polycystic ovarian syndrome; L68.0 Hirsutism
CPT/HCPCS: 36415; 82627; 82670; 83525; 84144; 84403; 84439; 84443; 84481

== ENCOUNTER 2025-01-01 17:58 | Emergency (ER) | payer OTHER, SELFPAY ==
--- OUTSIDE RECORDS SUMMARY | 2024-10-05 11:22 | XMS_ITS ---
Author Name Auto Generated Organization OHIP Care Team Providers Care Warehouse Supervisor Name Role Phone JAMIE HERRON Attending Unavailable PASQUALE SPARKS Attending Unavailable PASQUALE SPARKS Referring Unavailable JAMIE HERRON Attending Unavailable JAMIE HERRON Attending Unavailable PROBLEMS No Problem Records Found PROCEDURES No Procedure Records Found RESULTS No Result Records Found ALLERGIES No Allergies Records Found ENCOUNTERS ADMIT/DISCHARGE ACCOUNT NUMBER ADMITTING ENCOUNTER CLASS LOCATION SOURCE 10/05/2024/ 5 [id number] Ambulatory Building:[facility] 07/12/2024/ 4 [id number] Ambulatory Building:[facility] 01/13/2024/ 4 [id number] Ambulatory Building:[facility] 01/12/2024/ 4 [id number] Ambulatory Building:[facility] PAYERS ENCOUNTER GUARANTOR PAYER SUBSCRIBER SOURCE 10/05/2024 [address]: [address], [place] [address]Srb: () Primary Insurance:HEALTH SCOPEPolicy Number: [id number] e Date:2022-08-09 TRESSA WALLSB: [id number], [place] [address] [facility] 07/12/2024 TRESSA WALLSB: [address], [place] [address]Zdm: (HP) Primary Insurance:HEALTH SCOPEPolicy Number: [id number] e Date:2022-08-09 TRESSA WALLSB: [id number], [place] [address] [facility] EPIC 01/13/2024 TRESSA WALLSB: [address] [address]Nmg: (HP) Primary Insurance:HEALTH SCOPEPolicy Number: [id number] e Date:2022-08-09 TRESSA WALLSB: [id number] [place] [address] [facility] EPIC 01/12/2024 TRESSA WALLSB: [address] [address]Bcf: () Primary Insurance:HEALTH SCOPEPolicy Number: [id number] e Date:2022-08-09 TRESSA WALLSB: [id number] [address] [id number] [place] [address] [facility] EPIC
[2025-01-01 18:21] VITALS: BP 151/94; PULSE 87; TEMP 37.1; O2SAT 99; BMI 38.7
--- NOTE | 2025-01-01 19:57 | ED_ITS ---
<Statement entered by Jesus Manuel Ellis MD - 01/02/25 07:25> I did not see this patient. HPI - Nausea/Vomiting/Diarrhea General Chief complaint: Nausea/Vomiting/Diarrhea Stated complaint: RECENT TRAVEL, ANXIETY, FLU LIKE SYMP, FOOT ISSUE Time Seen by Provider: 01/01/25 19:56 Source: patient Mode of arrival: walk-in Limitations: no limitations History of Present Illness HPI Narrative: was in [place] last week and came home 5 days ago. Started to feel ill when boarding the plane. complains of nausea and diarrhea. Diarrhea is improving. Feel anxious and light headed but able to walk. Has history of anxiety and prescribed xanax but has not taken a dose in 5 days. States she was walking through [place]ed area in [place] [facility] States she developed blisters on her skin. She also had blisters on her feet. The blisters have now dried up. No pain of her feet or fever. Related Data Home Medications ?Medication ?Instructions ?Recorded ?Confirmed alprazolam 0.5 mg tablet 0.5 mg PO BID PRN anxiety 01/01/25 levothyroxine 200 mcg tablet 200 mcg PO DAILY 01/01/25 01/01/25 Allergies Allergy/AdvReac Type Severity Reaction Status Date / Time No Known Drug Allergies Allergy Verified 01/01/25 18:27 Review of Systems ROS Status of ROS 10 or more systems reviewed and unremark able except as noted in history and below PFSH PFSH Social History Little interest or pleasure in doing things: not at all Feeling down, depressed, or hopeless: not at all Exam Constitutional Vital Signs, click to edit/add: Last Vital Signs Temp 98.7 F 01/01/25 18:21 Pulse 72 01/01/25 20:00 Resp 18 01/01/25 18:21 BP 128/71 01/01/25 20:00 Pulse Ox 99 01/01/25 18:21 O2 Del Method Room Air 01/01/25 18:21 Common normals: no apparent distress, average body habitus, oriented x3, no limitations, healthy appearing, alert and well nourished [facility] Common normals: normocephalic and head/scalp atraumatic Other: fluid behind both TMs Eye Common normals: PERRL, EOMs intact bilaterally and conjunctivae normal Respiratory Common normals: normal respiratory effort, no retractions, no use of accessory muscles and clear to auscultation bilaterally Cardio Common normals: regular rate, regular rhythm, S1 normal heart sound and S2 normal heart sound GI Common normals: Normal to inspection, nondistended, normoactive bowel sounds present, soft to palpation and non-tender Extremity Common normals: normal to inspection and full ROM Other: dry 3cm lesions on her feet bilat that were once blisters. has one on each sole of her feet near 1st MTP joint. No swelling or redness. Nontender Neuro Common normals: oriented x3, CN's II-XII intact bilaterally, moves all extremities and no focal motor deficits Psych Appearance: grossly normal Course Vital Signs Vital signs: Vital Signs Temperature 98.7 F 01/01/25 18:21 Pulse Rate 87 01/01/25 18:21 Respiratory Rate 18 01/01/25 18:21 Blood Pressure 151/94 H 01/01/25 18:21 Pulse Oximetry 99 01/01/25 18:21 Oxygen Delivery Method Room Air 01/01/25 18:21 Temperature 98.7 F 01/01/25 18:21 Pulse Rate 72 01/01/25 20:00 Respiratory Rate 18 01/01/25 18:21 Blood Pressure 128/71 01/01/25 20:00 Pulse Oximetry 99 01/01/25 18:21 Oxygen Delivery Method Room Air 01/01/25 18:21 MDM - Nausea/Vomiting/Diarrhea MDM Narrative Medical decision making narrative: presents 5 days after trip to [place] complaining of feeling anxious, light headed but not vertiginous. Able to walk without difficulty. [place] and had open blisters on her feet. Concerned about possible leptospirosis. States there was a warning at the park. Her workup here is neg. Nausea resolved after zofran. will treat with course of doxycycline for possible lepto and have her follow up with her doctor. The doxycycline will also be helpful for her otitis serous bilat Lab Data Labs: Lab Results 01/01/25 01/01/25 Range/Units 20:17 20:26 WBC 9.0 (4.0-11.0) 10^3/uL RBC 5.15 (4.20-5.40) 10^6/uL Hgb 14.4 (12.0-16.0) g/dL Hct 44.0 (36.0-48.0) % MCV 85.4 (81.0-99.0) fL MCH 28.0 (26.7-34.0) pg MCHC 32.7 (29.9-35.2) g/dL RDW 13.0 (11.0-15.0) % Plt Count 464 H (150-450) 10^3/uL MPV 8.3 L (9.5-13.5) fL Neut % (Auto) 62.4 (43.0-75.0) % Lymph % (Auto) 27.4 (20.5-60.0) % [place] % (Auto) 8.7 (1.7-12.0) % Eos % (Auto) 1.0 (0.9-7.0) % Baso % (Auto) 0.3 (0.2-2.0) % Neut # (Auto) 5.6 (1.4-6.5) 10^3/uL Lymph # (Auto) 2.5 (1.2-3.8) 10^3/uL [place] # (Auto) 0.8 (0.3-0.8) 10^3/uL Eos # (Auto) 0.1 (0.0-0.7) 10^3/uL Baso # (Auto) 0.0 (0.0-0.1) 10^3/uL Abs Immat Gran (auto) 0.02 (0.00-0.03) 10^3/uL Imm/Tot Granulo (auto) 0.2 (0.0-0.5) % Sodium 145 (136-145) mmol/L Potassium 4.1 (3.5-5.1) mmol/L Chloride 107 (98-107) mmol/L Carbon Dioxide 27.0 (21.0-32.0) mmol/L Anion Gap 15.1 BUN 11.0 (7.0-18.0) mg/dL Creatinine 0.72 (0.55-1.02) mg/dL Est GFR ( Amer) >60 (>=60 mL/min/1.73m^2) Est GFR (Non-Af Amer) >60 (>=60 mL/min/1.73m^2) BUN/Creatinine Ratio 15.3 Glucose 89 (74-106) mg/dL Lactate 1.0 (0.4-2.0) mmol/L Calcium 9.3 (8.5-10.1) mg/dL Total Bilirubin 0.4 (0.2-1.0) mg/dL AST 21 (15-37) U/L ALT 33 (14-59) U/L Alkaline Phosphatase 81 (46-116) U/L Total Protein 7.5 (6.4-8.2) g/dL Albumin 4.0 (3.4-5.0) g/dL Globulin 3.5 g/dL Albumin/Globulin Ratio 1.1 Urine Color Lt. yellow (YELLOW) Urine Clarity Clear (CLEAR) Urine pH 7.0 (5.0-9.0) Ur Specific Basin 1.010 (1.005-1.025) Urine Protein Negative (NEG/TRACE) mg/dL Urine Glucose (UA) Negative (NEGATIVE) mg/dL Urine Ketones Negative (NEGATIVE) mg/dL Urine Occult Blood Negative (NEGATIVE) Urine Nitrite Negative (NEGATIVE) Urine Bilirubin Negative (NEGATIVE) Urine Urobilinogen 0.2 (0.2-1.0) EU/dL Ur Leukocyte Esterase Negative (NEGATIVE) Urine RBC 0-2 (0-2) #/HPF Urine WBC 0-2 A (NONE SEEN) #/HPF Ur Squamous Epith Cells Rare (NONE/RARE) #/LPF Urine Crystals None seen (None Seen) #/HPF Urine Bacteria Trace A (NONE SEEN) #/HPF Urine Casts None seen (NONE SEEN) #/LPF Urine Mucus None seen (NONE SEEN) Ur Culture Indicated? No Discharge Plan Discharge Chief Complaint: Nausea/Vomiting/Diarrhea Clinical Impression: Otitis media, serous, acute, without rupture, Dizziness, Anxiety Patient Disposition: Home, Self-Care Prescriptions / Home Meds: No Action levothyroxine 200 mcg tablet 200 mcg PO DAILY alprazolam 0.5 mg tablet 0.5 mg PO BID PRN (Reason: anxiety) Print Language: Singaporean Instructions: Lightheadedness (ED), Anxiety (ED), Fluid In The Ear (Serous Otitis Media) (ED) Additional Instructions: drink plenty of fluids and follow up with your doctor later this week for recheck Referrals: Geremias Nascimento MD [Primary Care Provider, Family Practice] - 1 week
[2025-01-01 20:00] VITALS: BP 115/92; BP 128/71; BP 131/85; PULSE 72; PULSE 77; PULSE 89
[2025-01-01] MEDS: 0.9 % SODIUM CHLORIDE 1,000 ML 999 ML IV ×2 (20:20→21:20)
[2025-01-01] MEDS: ONDANSETRON PF 4 MG/2 ML VIAL IV (20:20)
[2025-01-01 20:34] LABS: Basophils Percent Auto 0.3 % (0.2-2.0); Eosinophils Absolute Auto 0.1 10^3/uL (0.0-0.7); Hemoglobin 14.4 g/dL (12.0-16.0); Immature Granulocytes Abs Auto 0.02 10^3/uL (0.00-0.03); Immature Granulocytes Pct Auto 0.2 % (0.0-0.5); Lymphocytes Absolute Auto 2.5 10^3/uL (1.2-3.8); Lymphocytes Percent Auto 27.4 % (20.5-60.0); Mean Corpuscular HGB Conc 32.7 g/dL (29.9-35.2); Mean Corpuscular Volume 85.4 fL (81.0-99.0); Mean Platelet Volume 8.3 fL (9.5-13.5); Monocytes Absolute Auto 0.8 10^3/uL (0.3-0.8); Monocytes Percent Auto 8.7 % (1.7-12.0); Neutrophils Absolute Auto 5.6 10^3/uL (1.4-6.5); Neutrophils Percent Auto 62.4 % (43.0-75.0); Platelet Count 464 10^3/uL (150-450); Red Blood Count 5.15 10^6/uL (4.20-5.40)
[2025-01-01 20:49] LABS: Bilirubin Urine NEGATIVE (NEGATIVE); Blood Urine NEGATIVE (NEGATIVE); Clarity Urine CLEAR (CLEAR); Color Urine LT. YELLOW (YELLOW); Glucose Urine UA NEGATIVE (NEGATIVE); Ketones Urine NEGATIVE (NEGATIVE); Leukocyte Esterase Urine NEGATIVE (NEGATIVE); Nitrite Urine NEGATIVE (NEGATIVE); Protein Urine NEGATIVE (NEG/TRACE); Urobilinogen Urine 0.2 EU/dL (0.2-1.0)
[2025-01-01 21:02] LABS: Bacteria Urine TRACE #/HPF (NONE SEEN); Cast Seen? NONE SEEN #/LPF (NONE SEEN); Crystals Seen? None Seen #/HPF (None Seen); Mucus Urine NONE SEEN (NONE SEEN); RBC Urine 0-2 #/HPF (0-2); Squamous Epithelial Cell Urine RARE #/LPF (NONE/RARE); Urine Culture Indicated NO; WBC Urine 0-2 #/HPF (NONE SEEN)
[2025-01-01 21:03] LABS: Alanine Aminotransferase 33 U/L (14-59); Albumin Globulin Ratio 1.1; Alkaline Phosphatase 81 U/L (46-116); Anion Gap 15.1; Aspartate Amino Transferase 21 U/L (15-37); BUN Creatinine Ratio 15.3; Bilirubin Total 0.4 mg/dL (0.2-1.0); Calcium 9.3 mg/dL (8.5-10.1); Chloride 107 mmol/L (98-107); Estimated GFR (African America >60 (>=60 mL/min/1.73m^2); Estimated GFR (Non-African Ame >60 (>=60 mL/min/1.73m^2); Globulin 3.5 g/dL; Glucose 89 mg/dL (74-106); Potassium 4.1 mmol/L (3.5-5.1); Sodium 145 mmol/L (136-145); Total Protein 7.5 g/dL (6.4-8.2)
[2025-01-01] MEDS: DOXYCYCLINE MONOHYDRATE 100 MG CAPSULE PO (22:09)
== END 2025-01-01 22:30 | disposition home or self-care (01) ==
PROVIDERS: Emergency Provider Internal Medicine; PCP Family Medicine
DX: R42 Dizziness and giddiness (principal); F41.9 Anxiety disorder, unspecified; H65.00 Acute serous otitis media, unspecified ear
CPT/HCPCS: 36415; 80053; 81001; 83605; 85025; 96361; 96374; 99285; J2405